=== PATIENT | female | born 1955 | race Caucasian/White ===

== ENCOUNTER 2016-12-31 11:13 | Outpatient (CLI) | payer OTHER ==
[~2016-12-31 11:13] MED LIST: ADVAIR DISKU1 INH; BACLOFEN10 MG PO; CELEBREX200 MG PO; HYDROXYZINE HCL25 MG PO; METRONIDAZOLE500 MG PO; OXAYDO5 MG PO; SIMVASTATIN10 MG; [UNRECOGNIZED DRUG - CODE]
== END 2016-12-31 23:00 | disposition home or self-care (01) ==
LOC: LAB SRH 11:13
DX: R42 Dizziness and giddiness (principal)
CPT/HCPCS: 90073; 90074; 90075; 90077; 90078; 90100; 90648; 91096; 91504; 92690; 92720; 93140; 95059; 99777

== ENCOUNTER 2017-02-04 15:08 | Emergency (ER) | payer OTHER ==
--- NOTE | 2017-02-04 16:14 | DIAGNOSTIC IMAGING REPORT ---
PROCEDURE: XR SHOULDER 2 OR MORE VW-LEFT INDICATION: PAIN TECHNIQUE: Three views. COMPARISON: None. FINDINGS: Osseous structures and joint spaces are normal. IMPRESSION: 1. Normal left shoulder.
--- NOTE | 2017-02-04 16:33 | ED NURSING NOTES ---
Clinical Report - Nurses [facility] [address] [place] [address] 02/04/2017 15:11 [id number] TRI[facility] Triage time 15:22. Acuity: LEVEL 4. Chief Complaint: LEFT UPPER EXTREMITY PAIN and REDNESS. Alert. No acute distress. MARC COMA SCORE: Marc Coma Scale: 15- eyes open spontaneously (4); best verbal response- oriented x 4 (5); best motor response- obeys commands (6). --15:39 Sierra Bettencourt R.N. 15:22 02/04/17. BP: 154/81. HR: 71. RR: 18. O2 saturation: 98%. Temp: 97.5 F (oral). Pain level now: 05/19. --15:39 Sierra Bettencourt R.N. Weight: 72.1 kg stated. Height/Length: 61 inches Per Patient. BMI: 30. --15:36 Sierra Bettencourt R.N. Medications Fiber Therapy Oral, daily. HydrOXYzine HCl Oral 25 mg, 4x a day. Lidocaine External, as directed. Metoprolol Tartrate Oral 100 mg, bid. Simvastatin Oral (Tablet 10 mg), daily. --15:25 Sierra Bettencourt R.N. Cyanocobalamin Injection 1 tab, daily. --15:27 Sierra Bettencourt R.N. Calcium Carb-Cholecalciferol Oral 1 tab, daily. --15:28 Sierra Bettencourt R.N. Nitroglycerin Translingual, as needed. --15:29 Sierra Bettencourt R.N. ProAir HFA Inhalation, 2x a day. --15:29 Sierra Bettencourt R.N. Cyclobenzaprine HCl Oral 10 mg, 2x a day. --15:30 Sierra Bettencourt R.N. TraMADol HCl Oral 50 mg, 4x a day. --15:30 Sierra Bettencourt R.N. Tylenol PM Extra Strength Oral (Tablet 500-25 mg) 2 tablets, hs. --15:31 Sierra Bettencourt R.N. Estroven, daily. --15:33 Sierra Bettencourt R.N. Probiotic Oral, daily. --15:33 Sierra Bettencourt R.N. (list). --15:39 Sierra Bettencourt R.N. Allergies IV Contrast. --15:33 Sierra Bettencourt R.N. History Arrived by private vehicle. Historian: patient. Unaccompanied. Primary physician ([facility] [place]). This occurred (6 days). ( pain woke her up from sleep and it has been painful since). SOCIAL HX: Former smoker. No alcohol use or drug use. FALL RISK ASSESSMENT: Fall risk assessment completed. No fall risk identified. FUNCTIONAL ASSESSMENT: Functional assessment: no impairments noted. LEARNING NEEDS ASSESSMENT: The learning needs assessment revealed no barriers. --15:39 Sierra Bettencourt R.N. PROBLEMS: Hepatitis. UTI - Urinary Tract Infection. Hypertension. Drug Poisoning. Constipation. Allergic Reaction. Gastroenteritis. Muscle Strain, Lower Extremity. Cervical Strain. Colitis. Dental Caries. Dental Abscess. Dental Pain. Atypical Chest Pain. Pleurisy. Bronchitis. Pyelonephritis. COPD - Chronic Obstructive Pulmonary Disease. Urinary Calculi. Nephropathy. Peptic Ulcer Disease. Heart Disease. Lung Disease. Gastroesophageal Reflux Disease. Diverticulitis. Valvular Heart Disease. Chest Wall Pain. Chest Pain. Abdominal Pain. Vomiting. Diarrhea. --15:35 Sierra Bettencourt R.N. Chest Pain of GI Origin [RuleOut]. Diverticulitis [RuleOut]. --15:35 Sierra Bettencourt R.N. ADDITIONAL SURGERIES: Ablation. Back pain stimulator implanted 07-24. Cholecystectomy. Colectomy. Hernia Repair. Valve Replacement. --15:35 Sierra Bettencourt R.N. Assessment GENERAL / NEURO / PSYCH: Alert. Oriented X 4. Appears in no acute distress. Patient appears calm and cooperative. RESPIRATORY: Respirations not labored. SKIN: Skin is warm and dry. --15:39 Sierra Bettencourt R.N. Interventions ID and allergy band on patient. To treatment room. --15:39 Sierra Bettencourt R.N. PHYSICAL ASSESSMENT 15:43 02/04/17. Ambulatory to room. Patient gowned. GENERAL / NEURO / PSYCH: Oriented X 4. Alert. Appears in no acute distress. SKIN: Skin is warm and dry. ( holding her left arm close to her body). --15:43 Sierra Bettencourt R.N. NURSING PROGRESS NOTES 15:43 02/04/17. Patient gowned. Call light placed in reach. Side rails up x 1. Bed placed in lowest position. Brakes of bed on. --15:43 Sierra Bettencourt R.N. Patient walked to [facility]. --15:43 Sierra Bettencourt R.N. 16:40. The patient is calm and resting quietly. Overall patient status is the same- she states feels the same. GENERAL / NEURO / PSYCH: Alert. Oriented X 4. RESPIRATORY: No respiratory distress. SKIN: Skin is warm and dry. --16:46 Sierra Bettencourt R.N. DISPOSITION / DISCHARGE Departure time: 1639. Condition at departure: stable. No learning barriers present. Discharge instructions provided and reviewed with the patient. Reviewed medication(s). Prescription(s) given to the patient. Patient verbalized understanding. Written instructions provided in Hungarian. The patient was discharged home and accompanied by transit manager. She left the Emergency Department ambulatory and via private vehicle. FALL RISK ASSESSMENT: Fall risk assessment completed. No fall risk identified. --16:45 Sierra Bettencourt R.N. 16:40 02/04/17. BP: 147/77. HR: 70. RR: 18. O2 saturation: 98% on room air. Temp: 97.5 F (oral). Pain level now: 02/16. --16:45 Sierra Bettencourt R.N. Locked/Released at 02/04/2017 16:46 by Sierra Bettencourt R.N.
--- NOTE | 2017-02-04 16:33 | ED CLINICAL REPORT ---
Clinical Report - Physicians/Mid Levels [facility] [address] [place] [address] 02/04/2017 15:11 Patient: VESNA KRUSE Time Seen: 15:30; upon arrival, initial patient contact, initial documentation, patient care assumed. Arrived- By private vehicle. Historian- patient. HISTORY OF PRESENT ILLNESS Chief Complaint: UPPER EXTREMITY PAIN. Modifying factors- worsened by movement of arm. Not made better by anything. Severity is described as being severe. The quality is noted to be "pain". No radiation. This started about 1 weeks ago and is still present. Symptoms located in the area of the left shoulder. No chest pain, difficulty breathing, swelling, sensory loss or motor loss. No repetitive hand use at work. She has not had redness. Patient denies an injury. Similar symptoms previously: None. Recent medical care: The patient was seen recently in the office. ( went to pcp x2 days ago, given muscle relaxer and tramadol, no better, asked her dr to give her stronger pain pills but pcp wouldn't do it, went to heart dr yesterday, nothing said about shoulder pain, says dr was concerned about her hepatitis and her liver). REVIEW OF SYSTEMS No fever. All systems otherwise negative, except as recorded above. PAST HISTORY See nurses notes. PROBLEMS: Hepatitis. UTI - Urinary Tract Infection. Hypertension. Drug Poisoning. Constipation. Allergic Reaction. Gastroenteritis. Muscle Strain, Lower Extremity. Cervical Strain. Colitis. Dental Caries. Dental Abscess. Dental Pain. Atypical Chest Pain. Pleurisy. Bronchitis. Pyelonephritis. COPD - Chronic Obstructive Pulmonary Disease. Urinary Calculi. Nephropathy. Peptic Ulcer Disease. Heart Disease. Lung Disease. Gastroesophageal Reflux Disease. Diverticulitis. Valvular Heart Disease. Chest Wall Pain. Chest Pain. Abdominal Pain. Vomiting. Diarrhea. --15:35 Sierra Bettencourt R.N. Chest Pain of GI Origin [RuleOut]. Diverticulitis [RuleOut]. --15:35 Sierra Bettencourt R.N. ADDITIONAL SURGERIES: Ablation. Back pain stimulator implanted 07-24. Cholecystectomy. Colectomy. Hernia Repair. Valve Replacement. --15:35 Sierra Bettencourt R.N. SOCIAL HISTORY Former smoker. No alcohol use or drug use. No recent travel. Is a local resident. FAMILY HISTORY Negative. ADDITIONAL NOTES The nursing notes have been reviewed with agreement regarding the chief complaint, HPI, ROS, PMH and patient medications and allergies. PHYSICAL EXAM Appearance: Alert. Oriented X3. No acute distress. Eyes: Pupils equal, round and reactive to light. Eyes normal inspection. Neck: Normal inspection. Neck supple. Respiratory: No respiratory distress. Skin: Skin intact. Skin warm and dry. Normal skin color. Normal skin turgor. Extremities: Upper extremities abnormal to inspection. Upper extremities exhibit normal ROM. Upper extremity tenderness. Upper extremities exhibit edema. Left shoulder: mild tenderness located in the AC joint. Neurovascular intact distally. No erythema, swelling, laceration, abrasion or ecchymosis. No puncture wound, foreign body or deformity. No joint effusion or limitation in ROM. Extremities otherwise negative. Neuro: Oriented X 3. No motor deficit. No sensory deficit. LABS, X-RAYS, AND EKG X-Rays: Left shoulder negative. Lt Shoulder X-ray: (IMPRESSION: 1. Normal left shoulder. Electronically Final signed by:Jake Frost MD 02/04/2017 4:14:22 PM). The X-rays were interpreted by the radiologist and contemporaneously by me. Interpretation time: 16:23. PROGRESS AND PROCEDURES Course of Care: pt upset her dr didn't do any xrays, and already asking for more pain pills, and would like her hepatitis checked and her liver 15:44 02/04/17. nurse informing she knows pt from previous er visits pt has [facility] for frequent large quantity meds, last rx 01/14 #120 tramadol and #9 er visits, see report for full details [id number]. when discussing xray results pt asked for cortisone injection into shoulder, explained ortho or specialist would have to do this, pt stated she had appt with ortho but it was in a month,one for her R hip and one for her L shoulder, because both have been bothering her for some time now, discussed changing pain rx, and switching back to percocet and pt stated she didn't want any percocet, she was happy with ultram, pt also now telling me was at [facility] and they wouldn't do anything so she came here. Patient counseled in person regarding the patient's stable condition, test results and diagnosis. 16:24. Differential Diagnosis: I considered stress fracture, aseptic necrosis, primary tumor, metastatic cancer, degenerative joint disease, arthritis, rheumatoid arthritis, gout, sprain, hyperextension, rotator cuff tear, acromioclavicular separation, soft tissue injury, soft tissue hematoma, tendonitis, myositis, fasciitis, bursitis, sarcoma and tendon injury as a possible cause of upper extremity pain in this patient. This is a partial list of diagnoses considered. Above considerations are based on history, physical exam and X-Ray data. Differential diagnosis was discussed with patient. Disposition: Discharged home in good and unchanged condition (16:33). Condition: good and stable. CLINICAL IMPRESSION Chronic upper extremity pain involving the left shoulder. INSTRUCTIONS Warnings: GENERAL WARNINGS: Return or contact your physician immediately if your condition worsens or changes unexpectedly, if not improving as expected, or if other problems arise. Specifically return if problem worsens. Prescription Medications: Medrol Dosepak: take according to package directions. Dispense one (1) dosepak. No refills. Substitution is permissible. Follow-up: Follow up with an orthopedic surgeon in about one week even if well. Call for an appointment. Summary of care provided to patient. Understanding of the discharge instructions verbalized by patient. (Electronically signed by Loree Álvarez A.R.N.P. 02/04/2017 17:04)
--- NOTE | 2017-02-04 16:33 | ED NURSING NOTES ---
Clinical Report - Nurses [facility] [address] [place] [address] 02/04/2017 15:11 [id number] Triage time 15:22. Acuity: LEVEL 4. Chief Complaint: LEFT UPPER EXTREMITY PAIN and REDNESS. Alert. No acute distress. MARC COMA SCORE: Marc Coma Scale: 15- eyes open spontaneously (4); best verbal response- oriented x 4 (5); best motor response- obeys commands (6). --15:39 Sierra Bettencourt R.N. 15:22 02/04/17. BP: 154/81. HR: 71. RR: 18. O2 saturation: 98%. Temp: 97.5 F (oral). Pain level now: 05/19. --15:39 Sierra Bettencourt R.N. Weight: 72.1 kg stated. Height/Length: 61 inches Per Patient. BMI: 30. --15:36 Sierra Bettencourt R.N. Medications Fiber Therapy Oral, daily. HydrOXYzine HCl Oral 25 mg, 4x a day. Lidocaine External, as directed. Metoprolol Tartrate Oral 100 mg, bid. Simvastatin Oral (Tablet 10 mg), daily. --15:25 Sierra Bettencourt R.N. Cyanocobalamin Injection 1 tab, daily. --15:27 Sierra Bettencourt R.N. Calcium Carb-Cholecalciferol Oral 1 tab, daily. --15:28 Sierra Bettencourt R.N. Nitroglycerin Translingual, as needed. --15:29 Sierra Bettencourt R.N. ProAir HFA Inhalation, 2x a day. --15:29 Sierra Bettencourt R.N. Cyclobenzaprine HCl Oral 10 mg, 2x a day. --15:30 Sierra Bettencourt R.N. TraMADol HCl Oral 50 mg, 4x a day. --15:30 Sierra Bettencourt R.N. Tylenol PM Extra Strength Oral (Tablet 500-25 mg) 2 tablets, hs. --15:31 Sierra Bettencourt R.N. Estroven, daily. --15:33 Sierra Bettencourt R.N. Probiotic Oral, daily. --15:33 Sierra Bettencourt R.N. (list). --15:39 Sierra Bettencourt R.N. Allergies IV Contrast. --15:33 Sierra Bettencourt R.N. History Arrived by private vehicle. Historian: patient. Unaccompanied. Primary physician ([facility]). This occurred (6 days). ( pain woke her up from sleep and it has been painful since). SOCIAL HX: Former smoker. No alcohol use or drug use. FALL RISK ASSESSMENT: Fall risk assessment completed. No fall risk identified. FUNCTIONAL ASSESSMENT: Functional assessment: no impairments noted. LEARNING NEEDS ASSESSMENT: The learning needs assessment revealed no barriers. --15:39 Sierra Bettencourt R.N. PROBLEMS: Hepatitis. UTI - Urinary Tract Infection. Hypertension. Drug Poisoning. Constipation. Allergic Reaction. Gastroenteritis. Muscle Strain, Lower Extremity. Cervical Strain. Colitis. Dental Caries. Dental Abscess. Dental Pain. Atypical Chest Pain. Pleurisy. Bronchitis. Pyelonephritis. COPD - Chronic Obstructive Pulmonary Disease. Urinary Calculi. Nephropathy. Peptic Ulcer Disease. Heart Disease. Lung Disease. Gastroesophageal Reflux Disease. Diverticulitis. Valvular Heart Disease. Chest Wall Pain. Chest Pain. Abdominal Pain. Vomiting. Diarrhea. --15:35 Sierra Bettencourt R.N. Chest Pain of GI Origin [RuleOut]. Diverticulitis [RuleOut]. --15:35 Sierra Bettencourt R.N. ADDITIONAL SURGERIES: Ablation. Back pain stimulator implanted 07-24. Cholecystectomy. Colectomy. Hernia Repair. Valve Replacement. --15:35 Sierra Bettencourt R.N. Assessment GENERAL / NEURO / PSYCH: Alert. Oriented X 4. Appears in no acute distress. Patient appears calm and cooperative. RESPIRATORY: Respirations not labored. SKIN: Skin is warm and dry. --15:39 Sierra Bettencourt R.N. Interventions ID and allergy band on patient. To treatment room. --15:39 Sierra Bettencourt R.N. PHYSICAL ASSESSMENT 15:43 02/04/17. Ambulatory to room. Patient gowned. GENERAL / NEURO / PSYCH: Oriented X 4. Alert. Appears in no acute distress. SKIN: Skin is warm and dry. ( holding her left arm close to her body). --15:43 Sierra Bettencourt R.N. NURSING PROGRESS NOTES 15:43 02/04/17. Patient gowned. Call light placed in reach. Side rails up x 1. Bed placed in lowest position. Brakes of bed on. --15:43 Sierra Bettencourt R.N. Patient walked to [facility] with [employer]. --15:43 Sierra Bettencourt R.N. 16:40. The patient is calm and resting quietly. Overall patient status is the same- she states feels the same. GENERAL / NEURO / PSYCH: Alert. Oriented X 4. RESPIRATORY: No respiratory distress. SKIN: Skin is warm and dry. --16:46 Sierra Bettencourt R.N. DISPOSITION / DISCHARGE Departure time: 1639. Condition at departure: stable. No learning barriers present. Discharge instructions provided and reviewed with the patient. Reviewed medication(s). Prescription(s) given to the patient. Patient verbalized understanding. Written instructions provided in Estonian. The patient was discharged home and accompanied by human resources benefits assistant. She left the Emergency Department ambulatory and via private vehicle. FALL RISK ASSESSMENT: Fall risk assessment completed. No fall risk identified. --16:45 Sierra Bettencourt R.N. 16:40 02/04/17. BP: 147/77. HR: 70. RR: 18. O2 saturation: 98% on room air. Temp: 97.5 F (oral). Pain level now: 02/16. --16:45 Sierra Bettencourt R.N. Locked/Released at 02/04/2017 16:46 by Sierra Bettencourt R.N.
--- NOTE | 2017-02-04 16:33 | ED ORDER SUMMARY ---
..... Patient: VESNA KRUSE OrderSheet [facility] VisitID: [id number] [address] [place] [address] 61y, F Registration Date/Time: 02/04/2017 ORDER SHEET Weight: 72.1 kg (stated) Allergies: IV Contrast GENERAL ORDERS: Shoulder 2V or more Left Urgent (15:34 02/04/2017 Lissette A.R.N.P.) ([facility] 15:36 [facility] (16:07 [facility]) MEDICATION ORDERS: IV FLUIDS: ORDER SHEET NOTES: [Electronically signed by Sierra Bettencourt R.N. (16:46 02/04/2017)] [Electronically signed by Loree ÁlvarezR.N.PRoldan (17:04 02/04/2017)] [Electronically locked/signed by Sierra Bettencourt R.N. (16:46 02/04/2017)]
--- NOTE | 2017-02-04 16:33 | ED ORDER SUMMARY ---
..... Patient: VESNA KRUSE OrderSheet [facility] VisitID: [id number] [address] [place] [address] 61y, F Registration Date/Time: 02/04/2017 ORDER SHEET Weight: 72.1 kg (stated) Allergies: IV Contrast GENERAL ORDERS: Shoulder 2V or more Left Urgent (15:34 02/04/2017 Lissette A.R.N.P.) ([facility] 15:36 [facility] (16:07 [facility]) MEDICATION ORDERS: IV FLUIDS: ORDER SHEET NOTES: [Electronically signed by Sierra Bettencourt R.N. (16:46 02/04/2017)] [Electronically signed by Loree ÁlvarezR.N.PRoldan (17:04 02/04/2017)] [Electronically locked/signed by Sierra Bettencourt R.N. (16:46 02/04/2017)]
--- NOTE | 2017-02-04 17:05 | ED MED RECONCILIATION SUMMARY ---
Patient: VESNA KRUSE Medication Reconciliation Report [facility] VisitID: [id number] [address] [place] [address] 61y, F Registration Date/Time: 02/04/2017 Weight: 72.1 kg Height/Length: 61 in. BMI: 30.0 ALLERGIES: IV Contrast The patient's Home Medications are listed below: THE FOLLOWING MEDICATIONS NEED TO BE RECONCILED: Calcium Carb-Cholecalciferol Oral 1 tab, daily Cyanocobalamin Injection 1 tab, daily Cyclobenzaprine HCl Oral 10 mg, 2x a day Estroven, daily Fiber Therapy Oral, daily HydrOXYzine HCl Oral 25 mg, 4x a day Lidocaine External, as directed Metoprolol Tartrate Oral 100 mg, bid Nitroglycerin Translingual ProAir HFA Inhalation, 2x a day Probiotic Oral, daily Simvastatin Oral (10 mg), daily TraMADol HCl Oral 50 mg, 4x a day Tylenol PM Extra Strength Oral (500-25 mg) 2 tablets, hs The source(s) of the original Home Medication information: list The following Medications were given to the patient in the Emergency Department: None. The following Medications were prescribed to the patient: Medrol Dosepak: take according to package directions. Dispense one (1) dosepak. No refills. Substitution is permissible. -- Loree Álvarez A.R.N.P.
--- NOTE | 2017-02-04 17:05 | ED MED RECONCILIATION SUMMARY ---
Patient: VESNA KRUSE Medication Reconciliation Report [facility] VisitID: [id number] [address] [place] [address] 61y, F Registration Date/Time: 02/04/2017 Weight: 72.1 kg Height/Length: 61 in. BMI: 30.0 ALLERGIES: IV Contrast The patient's Home Medications are listed below: THE FOLLOWING MEDICATIONS NEED TO BE RECONCILED: Calcium Carb-Cholecalciferol Oral 1 tab, daily Cyanocobalamin Injection 1 tab, daily Cyclobenzaprine HCl Oral 10 mg, 2x a day Estroven, daily Fiber Therapy Oral, daily HydrOXYzine HCl Oral 25 mg, 4x a day Lidocaine External, as directed Metoprolol Tartrate Oral 100 mg, bid Nitroglycerin Translingual ProAir HFA Inhalation, 2x a day Probiotic Oral, daily Simvastatin Oral (10 mg), daily TraMADol HCl Oral 50 mg, 4x a day Tylenol PM Extra Strength Oral (500-25 mg) 2 tablets, hs The source(s) of the original Home Medication information: list The following Medications were given to the patient in the Emergency Department: None. The following Medications were prescribed to the patient: Medrol Dosepak: take according to package directions. Dispense one (1) dosepak. No refills. Substitution is permissible. -- Loree Álvarez A.R.N.P.
--- NOTE | 2017-02-04 17:05 | ED MAR SUMMARY ---
..... Medication Administration Record [facility] [address], [place] [id number] Patient: VESNA KRUSE Visit ID: [id number] 61y, F Weight: 72.1 kg Height/Length: 61 in BMI: 30 ALLERGIES: IV Contrast
--- NOTE | 2017-02-04 17:05 | ED DISCHARGE INSTRUCTIONS ---
Patient: VESNA KRUSE General Instructions [facility] VisitID: [id number] [place] [address] 61y, F Registration Date/Time: 02/04/2017 Chronic upper extremity pain involving the left shoulder. INSTRUCTIONS Warnings: GENERAL WARNINGS: Return or contact your physician immediately if your condition worsens or changes unexpectedly, if not improving as expected, or if other problems arise. Specifically return if problem worsens. Prescription Medications: Medrol Dosepak: take according to package directions. Dispense one (1) dosepak. No refills. Substitution is permissible. Follow-up: Follow up with an orthopedic surgeon in about one week even if well. Call for an appointment. Summary of care provided to patient. Understanding of the discharge instructions verbalized by patient. ADDITIONAL INFORMATION Shoulder Pain (Uncertain Cause) Shoulder pain often arises from the structures that surround the shoulder joint (the joint capsule, ligaments, tendons, muscles, and bursa). The joint itself contains cartilage that can become worn out or injured and can also be a source of pain. The correct treatment requires knowing the cause of the pain. Sometimes it is difficult to diagnose the exact cause of shoulder pain and referral to a specialist may be required. You may eventually need special tests such as CT scan, MRI, or arthroscopy (a procedure that uses special instruments to look inside the joint through a small incision). Shoulder pain can be treated initially with a sling or shoulder immobilizer and anti-inflammatory medicines such as ibuprofen. Special shoulder exercises may be needed. Follow-up with a specialist is important when pain is severe or does not go away after a few weeks. Home Care: If a sling was provided, leave it in place for the time advised by your doctor. If you are unsure how long to wear it, ask for advice. If the sling becomes loose, adjust it so that your forearm is level with the ground and the shoulder feels well supported. Apply an ice pack (ice cubes in a plastic bag, wrapped in a towel) over the injured area for 20 minutes every 1 to 2 hours the first day for pain relief. Continue this 3 to 4 times a day until the pain and swelling go away. You may use acetaminophen (Tylenol) or ibuprofen (Motrin, Advil) to control pain, unless another pain medicine was prescribed. (NOTE: If you have chronic liver or kidney disease or ever had a stomach ulcer or GI bleeding, talk with your doctor before using these medicines.) Shoulder pain may seem worse at night, when there is less to distract you from the pain. If you sleep on your side, try to keep your weight off your painful shoulder. Propping pillows behind you may prevent you from rolling over onto that shoulder during sleep. Shoulder joints become stiff if left in a sling for too long. Pxrox-kz-zcnlyb exercises should usually be started within the first 10 days after injury. Consult your doctor on what type of exercises to do and how soon to start. You may remove the sling to shower or bathe. Follow Up with your doctor, or as advised by our staff, if you are not starting to improve within the next 5 days. Get Prompt Medical Attention if any of the following occur: Pain or swelling increases Hand or fingers becomes cold, blue, numb, or tingly Large amount of bruising of the shoulder or upper arm Methylprednisolone Oral tablet What is this medicine? METHYLPREDNISOLONE (meth ill pred NISS oh lone) is a corticosteroid. It is commonly used to treat inflammation of the skin, joints, lungs, and other organs. Common conditions treated include asthma, allergies, and arthritis. It is also used for other conditions, such as blood disorders and diseases of the adrenal glands. How should I use this medicine? Take this medicine by mouth with a drink of water. Follow the directions on the prescription label. Take it with food or milk to avoid stomach upset. If you are taking this medicine once a day, take it in the morning. Do not take more medicine than you are told to take. Do not suddenly stop taking your medicine because you may develop a severe reaction. Your doctor will tell you how much medicine to take. If your doctor wants you to stop the medicine, the dose may be slowly lowered over time to avoid any side effects. Talk to your air traffic controller regarding the use of this medicine in children. Special care may be needed. What side effects may I notice from receiving this medicine? Side effects that you should report to your doctor or health neurocritical care physician as soon as possible: allergic reactions like skin rash, itching or hives, swelling of the face, lips, or tongue eye pain, decreased or blurred vision, or bulging eyes fever, sore throat, sneezing, cough, or other signs of infection, wounds that will not heal increased thirst mental depression, mood swings, mistaken feelings of self importance or of being mistreated pain in hips, back, ribs, arms, shoulders, or legs swelling of the ankles, feet, hands trouble passing urine or change in the amount of urine Side effects that usually do not require medical attention (report to your doctor or health neurocritical care physician if they continue or are bothersome): confusion, excitement, restlessness headache nausea, vomiting skin problems, acne, thin and shiny skin weight gain What may interact with this medicine? Do not take this medicine with any of the following medications: mifepristone This medicine may also interact with the following medications: tacrolimus vaccines warfarin What if I miss a dose? If you miss a dose, take it as soon as you can. If it is almost time for your next dose, talk to your doctor or health neurocritical care physician. You may need to miss a dose or take an extra dose. Do not take double or extra doses without advice. Where should I keep my medicine? Keep out of the reach of children. Store at room temperature between 20 and 25 degrees C (68 and 77 degrees F). Throw away any unused medicine after the expiration date. What should I tell my health care provider before I take this medicine? They need to know if you have any of these conditions: Singer's syndrome diabetes glaucoma heart problems or disease high blood pressure infection such as herpes, measles, tuberculosis, or chickenpox kidney disease liver disease mental problems myasthenia gravis osteoporosis seizures stomach ulcer or intestine disease including colitis and diverticulitis thyroid problem an unusual or allergic reaction to lactose, methylprednisolone, other medicines, foods, dyes, or preservatives or trying to get breast-feeding What should I watch for while using this medicine? Visit your doctor or health neurocritical care physician for regular checks on your progress. If you are taking this medicine for a long time, carry an identification card with your name and address, the type and dose of your medicine, and your doctor's name and address. The medicine may increase your risk of getting an infection. Stay away from people who are sick. Tell your doctor or health neurocritical care physician if you are around anyone with measles or chickenpox. If you are going to have surgery, tell your doctor or health neurocritical care physician that you have taken this medicine within the last twelve months. Ask your doctor or health neurocritical care physician about your diet. You may need to lower the amount of salt you eat. The medicine can increase your blood sugar. If you are a diabetic check with your doctor if you need help adjusting the dose of your diabetic medicine. You have been given the following additional information: Shoulder Pain (Uncertain Cause) Methylprednisolone Oral tablet (Electronically signed by Loree Álvarez A.R.N.P. 02/04/2017 17:04)
--- NOTE | 2017-02-04 17:05 | ED DISCHARGE INSTRUCTIONS ---
Patient: VESNA KRUSE General Instructions [facility] VisitID: [id number] [place] [address] 61y, F Registration Date/Time: 02/04/2017 Chronic upper extremity pain involving the left shoulder. INSTRUCTIONS Warnings: GENERAL WARNINGS: Return or contact your physician immediately if your condition worsens or changes unexpectedly, if not improving as expected, or if other problems arise. Specifically return if problem worsens. Prescription Medications: Medrol Dosepak: take according to package directions. Dispense one (1) dosepak. No refills. Substitution is permissible. Follow-up: Follow up with an orthopedic surgeon in about one week even if well. Call for an appointment. Summary of care provided to patient. Understanding of the discharge instructions verbalized by patient. ADDITIONAL INFORMATION Shoulder Pain (Uncertain Cause) Shoulder pain often arises from the structures that surround the shoulder joint (the joint capsule, ligaments, tendons, muscles, and bursa). The joint itself contains cartilage that can become worn out or injured and can also be a source of pain. The correct treatment requires knowing the cause of the pain. Sometimes it is difficult to diagnose the exact cause of shoulder pain and referral to a specialist may be required. You may eventually need special tests such as CT scan, MRI, or arthroscopy (a procedure that uses special instruments to look inside the joint through a small incision). Shoulder pain can be treated initially with a sling or shoulder immobilizer and anti-inflammatory medicines such as ibuprofen. Special shoulder exercises may be needed. Follow-up with a specialist is important when pain is severe or does not go away after a few weeks. Home Care: If a sling was provided, leave it in place for the time advised by your doctor. If you are unsure how long to wear it, ask for advice. If the sling becomes loose, adjust it so that your forearm is level with the ground and the shoulder feels well supported. Apply an ice pack (ice cubes in a plastic bag, wrapped in a towel) over the injured area for 20 minutes every 1 to 2 hours the first day for pain relief. Continue this 3 to 4 times a day until the pain and swelling go away. You may use acetaminophen (Tylenol) or ibuprofen (Motrin, Advil) to control pain, unless another pain medicine was prescribed. (NOTE: If you have chronic liver or kidney disease or ever had a stomach ulcer or GI bleeding, talk with your doctor before using these medicines.) Shoulder pain may seem worse at night, when there is less to distract you from the pain. If you sleep on your side, try to keep your weight off your painful shoulder. Propping pillows behind you may prevent you from rolling over onto that shoulder during sleep. Shoulder joints become stiff if left in a sling for too long. Tmjhm-pe-kjowjz exercises should usually be started within the first 10 days after injury. Consult your doctor on what type of exercises to do and how soon to start. You may remove the sling to shower or bathe. Follow Up with your doctor, or as advised by our staff, if you are not starting to improve within the next 5 days. Get Prompt Medical Attention if any of the following occur: Pain or swelling increases Hand or fingers becomes cold, blue, numb, or tingly Large amount of bruising of the shoulder or upper arm Methylprednisolone Oral tablet What is this medicine? METHYLPREDNISOLONE (meth ill pred NISS oh lone) is a corticosteroid. It is commonly used to treat inflammation of the skin, joints, lungs, and other organs. Common conditions treated include asthma, allergies, and arthritis. It is also used for other conditions, such as blood disorders and diseases of the adrenal glands. How should I use this medicine? Take this medicine by mouth with a drink of water. Follow the directions on the prescription label. Take it with food or milk to avoid stomach upset. If you are taking this medicine once a day, take it in the morning. Do not take more medicine than you are told to take. Do not suddenly stop taking your medicine because you may develop a severe reaction. Your doctor will tell you how much medicine to take. If your doctor wants you to stop the medicine, the dose may be slowly lowered over time to avoid any side effects. Talk to your piece worker regarding the use of this medicine in children. Special care may be needed. What side effects may I notice from receiving this medicine? Side effects that you should report to your doctor or health care team coordinator scheduler as soon as possible: allergic reactions like skin rash, itching or hives, swelling of the face, lips, or tongue eye pain, decreased or blurred vision, or bulging eyes fever, sore throat, sneezing, cough, or other signs of infection, wounds that will not heal increased thirst mental depression, mood swings, mistaken feelings of self importance or of being mistreated pain in hips, back, ribs, arms, shoulders, or legs swelling of the ankles, feet, hands trouble passing urine or change in the amount of urine Side effects that usually do not require medical attention (report to your doctor or health care team coordinator scheduler if they continue or are bothersome): confusion, excitement, restlessness headache nausea, vomiting skin problems, acne, thin and shiny skin weight gain What may interact with this medicine? Do not take this medicine with any of the following medications: mifepristone This medicine may also interact with the following medications: tacrolimus vaccines warfarin What if I miss a dose? If you miss a dose, take it as soon as you can. If it is almost time for your next dose, talk to your doctor or health care team coordinator scheduler. You may need to miss a dose or take an extra dose. Do not take double or extra doses without advice. Where should I keep my medicine? Keep out of the reach of children. Store at room temperature between 20 and 25 degrees C (68 and 77 degrees F). Throw away any unused medicine after the expiration date. What should I tell my health care provider before I take this medicine? They need to know if you have any of these conditions: [place]'s syndrome diabetes glaucoma heart problems or disease high blood pressure infection such as herpes, measles, tuberculosis, or chickenpox kidney disease liver disease mental problems myasthenia gravis osteoporosis seizures stomach ulcer or intestine disease including colitis and diverticulitis thyroid problem an unusual or allergic reaction to lactose, methylprednisolone, other medicines, foods, dyes, or preservatives or trying to get breast-feeding What should I watch for while using this medicine? Visit your doctor or health care team coordinator scheduler for regular checks on your progress. If you are taking this medicine for a long time, carry an identification card with your name and address, the type and dose of your medicine, and your doctor's name and address. The medicine may increase your risk of getting an infection. Stay away from people who are sick. Tell your doctor or health care team coordinator scheduler if you are around anyone with measles or chickenpox. If you are going to have surgery, tell your doctor or health care team coordinator scheduler that you have taken this medicine within the last twelve months. Ask your doctor or health care team coordinator scheduler about your diet. You may need to lower the amount of salt you eat. The medicine can increase your blood sugar. If you are a diabetic check with your doctor if you need help adjusting the dose of your diabetic medicine. You have been given the following additional information: Shoulder Pain (Uncertain Cause) Methylprednisolone Oral tablet (Electronically signed by Loree Álvarez A.R.N.P. 02/04/2017 17:04)
--- NOTE | 2017-02-04 17:05 | ED MAR SUMMARY ---
..... Medication Administration Record [facility] [address] [place], [place] [id number] Patient: VESNA KRUSE Visit ID: [id number] 61y, F Weight: 72.1 kg Height/Length: 61 in BMI: 30 ALLERGIES: IV Contrast
== END 2017-02-04 16:40 | disposition home or self-care (01) ==
LOC: ED SRH 15:08
DX: G89.29 Other chronic pain (principal); M25.512 Pain in left shoulder; I10 Essential (primary) hypertension; Z79.899 Other long term (current) drug therapy; Z87.891 Personal history of nicotine dependence; Z91.041 Radiographic dye allergy status

== ENCOUNTER 2017-02-13 07:26 | Emergency (ER) | payer OTHER ==
--- NOTE | 2017-02-13 09:40 | ED ORDER SUMMARY ---
..... Patient: VESNA KRUSE OrderSheet [facility] VisitID: [id number] [address] [place] [address] 61y, F Registration Date/Time: 02/13/2017 ORDER SHEET Weight: 73.0 kg (stated) Allergies: IV Contrast GENERAL ORDERS: Old Records ([facility]) (07:38 02/13/2017 PHutchinson DO) (Ack 7:41 TBergley) (7:59 MWinterer R.N.) Abd Series 2V Abd/1V Chest Urgent (07:53 02/13/2017 PHutchinson DO) (Ack 7:54 TBergley) (7:55 PHutchinson DO) (Cancelled: Other7:55 PHutchinson DO) UA-Culture if indicated Urgent (07:53 02/13/2017 PHutchinson DO) (Ack 7:54 TBergley) (9:22 MWinterer R.N.) Amylase Urgent (07:53 02/13/2017 PHutchinson DO) (Ack 7:54 TBergley) (8:27 MWinterer R.N.) Lipase Urgent (07:53 02/13/2017 PHutchinson DO) (Ack 7:54 TBergley) (8:27 MWinterer R.N.) Cardiac Panel Stat (07:53 02/13/2017 PHutchinson DO) (Ack 7:54 TBergley) (8:27 MWinterer R.N.) PT with INR Urgent (07:53 02/13/2017 PHutchinson DO) (Ack 7:54 TBergley) (8:27 MWinterer R.N.) Lactate, Serum Urgent (07:53 02/13/2017 PHutchinson DO) (Ack 7:54 TBergley) (8:27 MWinterer R.N.) BNP Urgent (07:53 02/13/2017 PHutchinson DO) (Ack 7:54 TBergley) (8:27 MWinterer R.N.) NPO (07:53 02/13/2017 PHutchinson DO) (Ack 7:54 TBergley) (7:59 MWinterer R.N.) CT Abd/Pel wo Cont (LLQ; contrast allergy) Urgent (07:55 02/13/2017 [facility]) (Ack 7:59 TBergley) (8:27 TBergley) MEDICATION ORDERS: - (Fleets enema x 2 (oil then water based)) (07:53 02/13/2017 [facility]) (Cancelled: Patient Refusal8:00 [facility]) Levofloxacin PO 750 mg (NOW) (09:34 02/13/2017 [facility]) (Ack 9:52 MWinterer R.N.) (9:58 MWinterer R.N.) Flagyl PO 1000 mg (NOW) (09:34 02/13/2017 [facility]) (Ack 9:52 MWinterer R.N.) (9:58 MWinterer R.N.) IV FLUIDS: IV NS : initial bolus 500 mL (1000 mL/hr), then 500 mL/hr for X1 (NOW) (07:52 02/13/2017 [facility]) (8:28 MWinterer R.N.) Zofran IV 4 mg (NOW) (07:52 02/13/2017 [facility]) (8:28 MWinterer R.N.) Dilaudid IV 1 mg (HIGH ALERT MEDICATION, NOW) (08:02 02/13/2017 [facility]) (Ack 8:28 MWinterer R.N.) (8:46 MWinterer R.N.) ORDER SHEET NOTES: [Electronically signed by Shalonda Nunez R.N. (10:15 02/13/2017)] [Electronically signed by Deepak Gates DO (11:19 02/13/2017)] [Electronically locked/signed by Shalonda Nunez R.N. (10:15 02/13/2017)]
--- NOTE | 2017-02-13 09:40 | ED NURSING NOTES ---
Clinical Report - Nurses [facility] [address] [place] [address] 02/13/2017 7:27 Patient: VESNA KRUSE TRIAGE Acuity: LEVEL 3. Chief Complaint: ABDOMINAL PAIN. Alert. No acute distress. --07:32 Shalonda Nunez R.N. 07:28 02/13/17. BP: 140/46. HR: 66. RR: 20. O2 saturation: 94% on room air. Temp: 97.9 F (oral). Pain level now: 9/10. --:32 Shalonda Nunez R.N. Weight: 73 kg stated. Height/Length: 62 inches Per Patient. BMI: 29.5. --07:32 Shalonda Nunez R.N. Medications Calcium Carb-Cholecalciferol Oral 1 tab, daily. Cyanocobalamin Injection 1 tab, daily. Cyclobenzaprine HCl Oral 10 mg, 2x a day. Estroven, daily. Fiber Therapy Oral, daily. HydrOXYzine HCl Oral 25 mg, 4x a day. Lidocaine External, as directed. Metoprolol Tartrate Oral 100 mg, bid. Nitroglycerin Translingual, as needed. ProAir HFA Inhalation, 2x a day. Probiotic Oral, daily. Simvastatin Oral (Tablet 10 mg), daily. TraMADol HCl Oral 50 mg, 4x a day. Tylenol PM Extra Strength Oral (Tablet 500-25 mg) 2 tablets, hs. --07: Shalonda Nunez R.N. Medication/allergy information source: the patient. --07:32 Shalonda Nunez R.N. Allergies IV Contrast. --: Shalonda Nunez R.N. History Arrived by EMS. Historian: patient. Unaccompanied. Primary physician ([facility]). This started last night. Describes the quality as "pain" and sharp. Relates location as in the periumbilical area. Notes pain level as 9/10 on arrival. She has had constipation. Reports last BM was 3 days ago. Treatment MANAGER OF CARE: None. PAST MEDICAL HX: The patient is post-menopausal. SOCIAL HX: Never smoker. No alcohol use or drug use. FALL RISK ASSESSMENT: Fall risk assessment completed. No fall risk identified. NUTRITIONAL RISK ASSESSMENT: The nutritional risk assessment revealed no deficiencies. FUNCTIONAL ASSESSMENT: Functional assessment: no impairments noted. LEARNING NEEDS ASSESSMENT: The learning needs assessment revealed no barriers. SKIN INTEGRITY ASSESSMENT: Skin integrity risk assessment completed. No skin integrity risk identified. --07:32 Shalonda Nunez R.N. Treatment MANAGER OF CARE: Medications given- Fentanyl IVP, morphine IVP and ondanestron. --07:33 Shalonda Nunez R.N. PROBLEMS: Upper Extremity Pain. Hepatitis. UTI - Urinary Tract Infection. Hypertension. Drug Poisoning. Constipation. Allergic Reaction. Gastroenteritis. Muscle Strain, Lower Extremity. Cervical Strain. Colitis. Dental Caries. Dental Abscess. Dental Pain. Atypical Chest Pain. Pleurisy. Bronchitis. Pyelonephritis. COPD - Chronic Obstructive Pulmonary Disease. Urinary Calculi. Nephropathy. Peptic Ulcer Disease. Heart Disease. Lung Disease. LNMP - Last Normal Menstrual Period. Gastroesophageal Reflux Disease. Diverticulitis. Valvular Heart Disease. Chest Wall Pain. Chest Pain. Abdominal Pain. Vomiting. Diarrhea. Immunizations. --07:30 Shalonda Nunez R.N. ADDITIONAL SURGERIES: Ablation. Back pain stimulator implanted 07-24. Cholecystectomy. Colectomy. Hernia Repair. Valve Replacement. --07:30 Shalonda Nunez R.N. Assessment GENERAL / NEURO / PSYCH: Alert. Oriented X 4. Appears in no acute distress. [place] Coma Scale: 15- eyes open spontaneously (4); best verbal response- oriented x 4 (5); best motor response- obeys commands (6). Patient appears calm and cooperative. RESPIRATORY: Respirations not labored. CVS: Capillary refill less than 2 seconds. GI / : Abdomen soft. Abdominal tenderness. SKIN: Mucous membranes are pink. Skin is warm and dry. --07:32 Shalonda Nunez R.N. Interventions ID band on patient. To treatment room. --07:32 Shalonda Nunez R.N. 07:33 02/13/2017 Site #1 started prior to arrival by EMS via IV in the left hand with an 20g angiocath. --07:33 Shalonda Nunez R.N. NURSING PROGRESS NOTES 07:32 02/13/17. Patient gowned. Two patient identifiers checked. Call light placed in reach. Side rails up x 2. Bed placed in lowest position. Brakes of bed on. Patient ready for evaluation- chart flagged and ED physician notified. --07:33 Shalonda Nunez R.N. 08:28 02/13/2017 Started bag #1 1000 mL IV Fluids IV NS (Saline); at 999 mL/hr over 30 minute(s) via site #1 via IV pump. Allergies verified and confirmed 5 rights. IV patency established. IV site checked: no pain, redness, or swelling. IV flushed thoroughly pre- and post-medication administration. --08:28 Shalonda Nunez R.N. 08:28 02/13/2017 Zofran (Ondansetron HCl) IVP 4 mg given over 1 minute(s) via site #1. Allergies verified and confirmed 5 rights. IV patency established. IV site checked: no pain, redness, or swelling. IV flushed thoroughly pre- and post-medication administration. IVP given by RN. --08:28 Shalonda Nunez R.N. 08:45 02/13/2017 IV Fluids IV NS via IV site #1 Rate Changed: bag #1 decreased to 500 mL/hr via IV pump. IV patency established. IV site checked: no pain, redness, or swelling. IV flushed thoroughly. Confirmed 5 Rights. --08:45 Shalonda Nunez R.N. 08:46 02/13/2017 Dilaudid (HYDROmorphone HCl PF) IVP 1 mg given over 1 minute(s) via site #1. Allergies verified, confirmed 5 rights and sedative warning given to the patient. IV patency established. IV site checked: no pain, redness, or swelling. IV flushed thoroughly pre- and post-medication administration. IVP given by RN. --08:46 Shalonda Nunez R.N. 09:23 02/13/17. Checked patient name and birthdate: patient confirmed. Clean catch urine collected with return of yellow-colored clear urine; sample sent to lab for urinalysis. Specimen labeled in the presence of the patient. --09:23 Shalonda Nunez R.N. 09:58 02/13/2017 Levofloxacin PO 750 mg given. Allergies verified and confirmed 5 rights. --09:58 Shalonda Nunez R.N. 09:58 02/13/2017 Flagyl (MetroNIDAZOLE) PO 1000 mg given. Allergies verified and confirmed 5 rights. --09:58 Shalonda Nunez R.N. DISPOSITION / DISCHARGE 10:03 02/13/2017 Site #1 removed upon discharge. Catheter intact. Manual pressure and bandage applied. --10:13 Shalonda Nunez R.N. 10:03 02/13/2017 IV Fluids IV NS Discontinued: bag #1 infused upon discharge. Total amount infused: 1000 mL. IV patency established. IV site checked: no pain, redness, or swelling. IV flushed thoroughly. --10:13 Shalonda Nunez R.N. Departure time: 10:Feb 13 2017. Condition at departure: improved and stable. No learning barriers present. Discharge instructions provided and reviewed with the patient. Reviewed medication(s) side effects, precautions and dosing information. Prescription(s) given to the patient. Patient verbalized understanding. Written instructions provided in Beninese. The patient was discharged by the physician. She was discharged home and accompanied by teller vault. She left the Emergency Department ambulatory and via private vehicle. Collection Specialist driving. --10:15 Shalonda Nunez R.N. 10:13 02/13/17. BP: 123/77. HR: 63. RR: 16. O2 saturation: 95% on room air. Temp: 97.5 F (oral). Pain level now: 12/17. --10:15 Shalonda Nunez R.N. Locked/Released at 02/13/2017 10:15 by Shalonda Nunez R.N.
--- NOTE | 2017-02-13 09:40 | ED CLINICAL REPORT ---
Clinical Report - Physicians/Mid Levels [facility] [address] [place] [address] 02/13/2017 7:27 Patient: VESNA KRUSE Time Seen: 07:36. Arrived- By ambulance. Historian- patient and EMS personnel. HISTORY OF PRESENT ILLNESS Chief Complaint: ABDOMINAL PAIN. At its maximum, severity described as severe. When seen in the E.D., severity described as severe. Modifying factors- worsened by movement. Relieved by rest. It is described as "pain". No radiation. It is described as located in the lower abdomen and in the left lower quadrant and left pelvis. This started about 3 days ago and is still present. It was gradual in onset and has been waxing/waning. The patient has had nausea. No vomiting or diarrhea. (Treatment SOCIAL SCIENCES INSTRUCTOR: Medications given- Fentanyl IVP, morphine IVP and ondanestron.). Similar symptoms previously: Many times. Recent medical care: The patient was seen recently at this facility in the emergency department. Diagnosis: urinary tract infection. REVIEW OF SYSTEMS The patient is post-menopausal. She has had constipation. No black stools, hematemesis, difficulty with urination, pain with urination or urinary frequency. No bloody stools, fever, headache, sore throat or chest pain. No difficulty breathing, cough or back pain. Denies current . Last bowel movement: 3 days ago. All systems otherwise negative, except as recorded above. PAST HISTORY PCP: [facility] See nurses notes. PROBLEMS: Hepatitis. UTI - Urinary Tract Infection. Hypertension. Drug Poisoning. Constipation. Allergic Reaction. Gastroenteritis. Muscle Strain, Lower Extremity. Cervical Strain. Colitis. Dental Caries. Dental Abscess. Dental Pain. Atypical Chest Pain. Pleurisy. Hyperlipidemia. Bronchitis. Pyelonephritis. COPD - Chronic Obstructive Pulmonary Disease. Urinary Calculi. Nephropathy. Peptic Ulcer Disease. Heart Disease. Lung Disease. Gastroesophageal Reflux Disease. Diverticulitis. Valvular Heart Disease. Chest Wall Pain. Chest Pain. Abdominal Pain. Vomiting. Diarrhea. Chest Pain of GI Origin [RuleOut]. Diverticulitis [RuleOut] SURGERIES: Ablation. Back pain stimulator implanted 07-24. Cholecystectomy. Colectomy. Hernia Repair. Valve Replacement. SOCIAL HISTORY Former smoker. No alcohol use or drug use. Residence: [facility]. ADDITIONAL NOTES The nursing notes have been reviewed. PHYSICAL EXAM Vital Signs: 02/13/2017 07:28 BP: 140/46. HR: 66. RR: 20. O2 saturation: 94%. Temp: 97.9 F. Pain level now: 10. Appearance: Alert. Oriented X3. Patient in moderate distress. Eyes: Eyes normal inspection. No scleral icterus or pale conjunctivae. ENT: Pharynx normal. No pharyngeal erythema or tonsillar exudate. The mucous membranes are not dry. Neck: Normal inspection. Neck supple. CVS: Normal heart rate and rhythm. Heart sounds normal. Pulses normal. Respiratory: No respiratory distress. Breath sounds normal. Abdomen: Soft. Moderate tenderness in the left lower quadrant and lower abdomen. No mass. No rebound tenderness or guarding. Back: Normal inspection. No tenderness. Skin: Skin warm and dry. Normal skin color. Normal skin turgor. Extremities: Extremities exhibit normal ROM. No calf tenderness. No lower extremity edema. Neuro: Oriented X 3. No motor deficit. LABS, X-RAYS, AND EKG Abdominal CT: IMPRESSION: 1. Mild, uncomplicated sigmoid diverticulitis. 2. Moderate obstipation of the proximal sigmoid. 3. Mild diffuse colonic obstipation. 4. Prior transverse colonic anastomosis. 5. Small lymph nodes adjacent to the ascending colon, probably reactive. Correlate with results of any prior colonoscopies. 6. Status post cholecystectomy and hysterectomy. Study type: abdomen and pelvis. Abdominal CT performed without contrast. The study was independently viewed by me, interpreted by the radiologist and discussed with the radiologist. Laboratory Tests: CBC w Diff: (CAREY: 02/13/2017 08:18) ( MsgRcvd 02/13/2017 08:34) Final results Test Result Flag Units (Reference) WHITE BLOOD COUNT 9.4 K/uL (4.5-11.5) RED BLOOD COUNT 4.76 M/uL (4.00-5.20) HEMOGLOBIN 13.8 gm/dL (12.0-16.0) HEMATOCRIT 42.0 % (36.0-46.0) MEAN CELL VOLUME 88 fL (80-100) MEAN CORPUSCULAR HGB 29 pg (26-34) MEAN CORPUSCULAR HGB CONC 33 g/dL (31-37) RED CELL DISTRIBUTION WIDTH 13.1 % (11.6-14.8) PLATELET COUNT 245 K/uL (150-400) NEUTROPHIL % 72.1 % (50-75) LYMPH % 20.4 L % (25-40) MONO % 5.1 % (3-14) EOSINOPHIL % 2.1 % (0-4) BASOPHIL % 0.3 % (0-2) PT with INR: (CAREY: 02/13/2017 08:18) ( [facility] 02/13/2017 08:37) Final results Test Result Flag Units (Reference) INR 0.8 (0.8-1.2) Low Intensity Therapy: INR 1.5-2.0 PT range 18.5-23.1Mod.Intensity Therapy: INR 2.0-3.0 PT range 23.1-31.5High Intensity Therapy: INR 2.5-3.5 PT range 27.4-35.5High Intensity Therapy 2: INR 3.0-4.0 PT range 31.5-39.3 BNP: (CAREY: 02/13/2017 08:18) ( [facility] 02/13/2017 08:49) Final results Test Result Flag Units (Reference) B-TYPE NATRIURETIC PEPTIDE 152 H pg/ml (5-100) Lactate, Serum: (CAREY: 02/13/2017 08:18) ( [facility] 02/13/2017 08:50) Final results Test Result Flag Units (Reference) LACTIC ACID <0.3 L mmol/L (0.4-2.0) . Pulse Oximetry: 02/13/2017 10:13 O2 saturation: 95%. (FIO2 - room air). Interpretation: normal. PROGRESS AND PROCEDURES Course of Care: Normal Saline 1 liter IVPB given. Levaquin 750 mg PO given. Zofran 4 mg IVP given. Dilaudid 1 mg IVP given. Flagyl 500 mg PO given. Patient is stable. Physical exam findings are improved. Symptoms much better. Patient/family counseled. Old ED records reviewed. Patient has had multiple ED visits ([facility] with 10 visits to ED's in past 12 months ([facility] x 5, [facility] x 5)). Disposition: Discharged. Condition: stable and improved. CLINICAL IMPRESSION Acute left lower quadrant abdominal pain of unknown cause. Acute diverticulitis of the colon. No perforation, bleeding, abscess, peritonitis or obstruction. Constipation Essential hypertension. INSTRUCTIONS Drink plenty of fluids. (MANDATORY RECHECK IN 12 - 24 HOURS UNLESS BETTER). Warnings: Further evaluation is necessary in order to conduct further tests (you will need to follow up closely with your gastroenterology specialists and surgeon and may need a repeat colonoscopy). It is very important to follow up with a physician. SEDATIVE MEDICATION: You were given sedative medication during your visit. Do not drive or operate dangerous machinery. CONTROLLED SUBSTANCE WARNINGS. GENERAL WARNINGS: Return or contact your physician immediately if your condition worsens or changes unexpectedly, if not improving as expected, or if other problems arise. Your Current Medications: STOP TAKING THE FOLLOWING MEDICATIONS: TraMADol HCl Oral : 50 mg 4x a day. CONTINUE TAKING THE FOLLOWING MEDICATIONS: Calcium Carb-Cholecalciferol Oral : 1 tab daily. Cyanocobalamin Injection : 1 tab daily. Cyclobenzaprine HCl Oral : 10 mg 2x a day. Estroven* : daily. Fiber Therapy Oral : daily. HydrOXYzine HCl Oral : 25 mg 4x a day. Lidocaine External : as directed. Metoprolol Tartrate Oral : 100 mg bid. Nitroglycerin Translingual : prn. ProAir HFA Inhalation : 2x a day. Probiotic Oral : daily. Simvastatin Oral : Tablet 10 mg, daily. Tylenol PM Extra Strength Oral : Tablet 500-25 mg, 2 tablets hs. Prescription Medications: Hydrocodone/APAP 5mg / 325mg: take 1-2 orally every 8 hours as needed for pain. Dispense ten (10). No refill. Cipro 500 mg: take 1 tab orally every 12 hours for 10 days. Dispense twenty (20). No refills. Substitution is permissible. Flagyl 500 mg: Take 1 tablet orally every 12 hours for 10 days. No refill. Substitution is permissible GoLYTELY: take 8 ounces every 10 minutes until consumed. Dispense four (4) Liter jug. No refill. Substitution is permissible. Follow-up: Follow up with your doctor [facility], Surgeon and senior sales consultant tomorrow. Screening today revealed the patient's blood pressure to be in the hypertensive range. The patient should follow up with a primary care provider for blood pressure management. (Electronically signed by Deepak Gates DO 02/13/2017 11:19)
--- NOTE | 2017-02-13 09:40 | ED ORDER SUMMARY ---
..... Patient: VESNA KRUSE OrderSheet [facility]ly [facility] VisitID: [id number] [address] [place] [address] 61y, F Registration Date/Time: 02/13/2017 ORDER SHEET Weight: 73.0 kg (stated) Allergies: IV Contrast GENERAL ORDERS: Old Records ([facility]) (07:38 02/13/2017 PHutchinson DO) (Ack 7:41 TBergley) (7:59 MWinterer R.N.) Abd Series 2V Abd/1V Chest Urgent (07:53 02/13/2017 PHutchinson DO) (Ack 7:54 TBergley) (7:55 PHutchinson DO) (Cancelled: Other7:55 PHutchinson DO) UA-Culture if indicated Urgent (07:53 02/13/2017 PHutchinson DO) (Ack 7:54 TBergley) (9:22 MWinterer R.N.) Amylase Urgent (07:53 02/13/2017 PHutchinson DO) (Ack 7:54 TBergley) (8:27 MWinterer R.N.) Lipase Urgent (07:53 02/13/2017 PHutchinson DO) (Ack 7:54 TBergley) (8:27 MWinterer R.N.) Cardiac Panel Stat (07:53 02/13/2017 PHutchinson DO) (Ack 7:54 TBergley) (8:27 MWinterer R.N.) PT with INR Urgent (07:53 02/13/2017 PHutchinson DO) (Ack 7:54 TBergley) (8:27 MWinterer R.N.) Lactate, Serum Urgent (07:53 02/13/2017 PHutchinson DO) (Ack 7:54 TBergley) (8:27 MWinterer R.N.) BNP Urgent (07:53 02/13/2017 PHutchinson DO) (Ack 7:54 TBergley) (8:27 MWinterer R.N.) NPO (07:53 02/13/2017 PHutchinson DO) (Ack 7:54 TBergley) (7:59 MWinterer R.N.) CT Abd/Pel wo Cont (LLQ; contrast allergy) Urgent (07:55 02/13/2017 [facility]) (Ack 7:59 TBergley) (8:27 TBergley) MEDICATION ORDERS: - (Fleets enema x 2 (oil then water based)) (07:53 02/13/2017 [facility]) (Cancelled: Patient Refusal8:00 [facility]) Levofloxacin PO 750 mg (NOW) (09:34 02/13/2017 [facility]) (Ack 9:52 MWinterer R.N.) (9:58 MWinterer R.N.) Flagyl PO 1000 mg (NOW) (09:34 02/13/2017 [facility]) (Ack 9:52 MWinterer R.N.) (9:58 MWinterer R.N.) IV FLUIDS: IV NS : initial bolus 500 mL (1000 mL/hr), then 500 mL/hr for X1 (NOW) (07:52 02/13/2017 [facility]) (8:28 MWinterer R.N.) Zofran IV 4 mg (NOW) (07:52 02/13/2017 [facility]) (8:28 MWinterer R.N.) Dilaudid IV 1 mg (HIGH ALERT MEDICATION, NOW) (08:02 02/13/2017 [facility]) (Ack 8:28 MWinterer R.N.) (8:46 MWinterer R.N.) ORDER SHEET NOTES: [Electronically signed by Shalonda Nunez R.N. (10:15 02/13/2017)] [Electronically signed by Deepak Gates DO (11:19 02/13/2017)] [Electronically locked/signed by Shalonda Nunez R.N. (10:15 02/13/2017)]
--- NOTE | 2017-02-13 09:40 | ED NURSING NOTES ---
Clinical Report - Nurses [facility] [address] [place] [address] 02/13/2017 7:27 Patient: VESNA KRUSE TRIAGE Acuity: LEVEL 3. Chief Complaint: ABDOMINAL PAIN. Alert. No acute distress. --07:32 Shalonda Nunez R.N. 07:28 02/13/17. BP: 140/46. HR: 66. RR: 20. O2 saturation: 94% on room air. Temp: 97.9 F (oral). Pain level now: 9/10. --:32 Shalonda Nunez R.N. Weight: 73 kg stated. Height/Length: 62 inches Per Patient. BMI: 29.5. --07:32 Shalonda Nunez R.N. Medications Calcium Carb-Cholecalciferol Oral 1 tab, daily. Cyanocobalamin Injection 1 tab, daily. Cyclobenzaprine HCl Oral 10 mg, 2x a day. Estroven, daily. Fiber Therapy Oral, daily. HydrOXYzine HCl Oral 25 mg, 4x a day. Lidocaine External, as directed. Metoprolol Tartrate Oral 100 mg, bid. Nitroglycerin Translingual, as needed. ProAir HFA Inhalation, 2x a day. Probiotic Oral, daily. Simvastatin Oral (Tablet 10 mg), daily. TraMADol HCl Oral 50 mg, 4x a day. Tylenol PM Extra Strength Oral (Tablet 500-25 mg) 2 tablets, hs. --07: Shalonda Nunez R.N. Medication/allergy information source: the patient. --07:32 Shalonda Nunez R.N. Allergies IV Contrast. --: Shalonda Nunez R.N. History Arrived by EMS. Historian: patient. Unaccompanied. Primary physician ([facility]). This started last night. Describes the quality as "pain" and sharp. Relates location as in the periumbilical area. Notes pain level as 9/10 on arrival. She has had constipation. Reports last BM was 3 days ago. Treatment TIN POT OPERATOR: None. PAST MEDICAL HX: The patient is post-menopausal. SOCIAL HX: Never smoker. No alcohol use or drug use. FALL RISK ASSESSMENT: Fall risk assessment completed. No fall risk identified. NUTRITIONAL RISK ASSESSMENT: The nutritional risk assessment revealed no deficiencies. FUNCTIONAL ASSESSMENT: Functional assessment: no impairments noted. LEARNING NEEDS ASSESSMENT: The learning needs assessment revealed no barriers. SKIN INTEGRITY ASSESSMENT: Skin integrity risk assessment completed. No skin integrity risk identified. --07:32 Shalonda Nunez R.N. Treatment TIN POT OPERATOR: Medications given- Fentanyl IVP, morphine IVP and ondanestron. --07:33 Shalonda Nunez R.N. PROBLEMS: Upper Extremity Pain. Hepatitis. UTI - Urinary Tract Infection. Hypertension. Drug Poisoning. Constipation. Allergic Reaction. Gastroenteritis. Muscle Strain, Lower Extremity. Cervical Strain. Colitis. Dental Caries. Dental Abscess. Dental Pain. Atypical Chest Pain. Pleurisy. Bronchitis. Pyelonephritis. COPD - Chronic Obstructive Pulmonary Disease. Urinary Calculi. Nephropathy. Peptic Ulcer Disease. Heart Disease. Lung Disease. LNMP - Last Normal Menstrual Period. Gastroesophageal Reflux Disease. Diverticulitis. Valvular Heart Disease. Chest Wall Pain. Chest Pain. Abdominal Pain. Vomiting. Diarrhea. Immunizations. --07:30 Shalonda Nunez R.N. ADDITIONAL SURGERIES: Ablation. Back pain stimulator implanted 07-24. Cholecystectomy. Colectomy. Hernia Repair. Valve Replacement. --07:30 Shalonda Nunez R.N. Assessment GENERAL / NEURO / PSYCH: Alert. Oriented X 4. Appears in no acute distress. Edward Coma Scale: 15- eyes open spontaneously (4); best verbal response- oriented x 4 (5); best motor response- obeys commands (6). Patient appears calm and cooperative. RESPIRATORY: Respirations not labored. CVS: Capillary refill less than 2 seconds. GI / : Abdomen soft. Abdominal tenderness. SKIN: Mucous membranes are pink. Skin is warm and dry. --07:32 Shalonda Nunez R.N. Interventions ID band on patient. To treatment room. --07:32 Shalonda Nunez R.N. 07:33 02/13/2017 Site #1 started prior to arrival by EMS via IV in the left hand with an 20g angiocath. --07:33 Shalonda Nunez R.N. NURSING PROGRESS NOTES 07:32 02/13/17. Patient gowned. Two patient identifiers checked. Call light placed in reach. Side rails up x 2. Bed placed in lowest position. Brakes of bed on. Patient ready for evaluation- chart flagged and ED physician notified. --07:33 Shalonda Nunez R.N. 08:28 02/13/2017 Started bag #1 1000 mL IV Fluids IV NS (Saline); at 999 mL/hr over 30 minute(s) via site #1 via IV pump. Allergies verified and confirmed 5 rights. IV patency established. IV site checked: no pain, redness, or swelling. IV flushed thoroughly pre- and post-medication administration. --08:28 Shalonda Nunez R.N. 08:28 02/13/2017 Zofran (Ondansetron HCl) IVP 4 mg given over 1 minute(s) via site #1. Allergies verified and confirmed 5 rights. IV patency established. IV site checked: no pain, redness, or swelling. IV flushed thoroughly pre- and post-medication administration. IVP given by RN. --08:28 Shalonda Nunez R.N. 08:45 02/13/2017 IV Fluids IV NS via IV site #1 Rate Changed: bag #1 decreased to 500 mL/hr via IV pump. IV patency established. IV site checked: no pain, redness, or swelling. IV flushed thoroughly. Confirmed 5 Rights. --08:45 Shalonda Nunez R.N. 08:46 02/13/2017 Dilaudid (HYDROmorphone HCl PF) IVP 1 mg given over 1 minute(s) via site #1. Allergies verified, confirmed 5 rights and sedative warning given to the patient. IV patency established. IV site checked: no pain, redness, or swelling. IV flushed thoroughly pre- and post-medication administration. IVP given by RN. --08:46 Shalonda Nunez R.N. 09:23 02/13/17. Checked patient name and birthdate: patient confirmed. Clean catch urine collected with return of yellow-colored clear urine; sample sent to lab for urinalysis. Specimen labeled in the presence of the patient. --09:23 Shalonda Nunez R.N. 09:58 02/13/2017 Levofloxacin PO 750 mg given. Allergies verified and confirmed 5 rights. --09:58 Shalonda Nunez R.N. 09:58 02/13/2017 Flagyl (MetroNIDAZOLE) PO 1000 mg given. Allergies verified and confirmed 5 rights. --09:58 Shalonda Nunez R.N. DISPOSITION / DISCHARGE 10:03 02/13/2017 Site #1 removed upon discharge. Catheter intact. Manual pressure and bandage applied. --10:13 Shalonda Nunez R.N. 10:03 02/13/2017 IV Fluids IV NS Discontinued: bag #1 infused upon discharge. Total amount infused: 1000 mL. IV patency established. IV site checked: no pain, redness, or swelling. IV flushed thoroughly. --10:13 Shalonda Nunez R.N. Departure time: 10:Feb 13 2017. Condition at departure: improved and stable. No learning barriers present. Discharge instructions provided and reviewed with the patient. Reviewed medication(s) side effects, precautions and dosing information. Prescription(s) given to the patient. Patient verbalized understanding. Written instructions provided in Swedish. The patient was discharged by the physician. She was discharged home and accompanied by counter clerk tractor parts. She left the Emergency Department ambulatory and via private vehicle. Printing Press Operator Apprentice driving. --10:15 Shalonda Nunez R.N. 10:13 02/13/17. BP: 123/77. HR: 63. RR: 16. O2 saturation: 95% on room air. Temp: 97.5 F (oral). Pain level now: 12/17. --10:15 Shalonda Nunez R.N. Locked/Released at 02/13/2017 10:15 by Shalonda Nunez R.N.
--- NOTE | 2017-02-13 09:43 | DIAGNOSTIC IMAGING REPORT ---
PROCEDURE: CT ABDOMEN/PELVIS W/O CONTRAST INDICATION: CONSTIPATION TECHNIQUE: Axial CT images were obtained through the abdomen and pelvis without IV contrast. Coronal and sagittal reformations were created. COMPARISON: 11/23/2015 FINDINGS: Circumferential wall thickening of the distal sigmoid with moderate diverticular disease and mild van colonic inflammation. In the proximal sigmoid, there is moderately increased amount of solid stool as well as mild diverticular disease and pericolonic inflammation around this segment as well. Mild pericolonic inflammation extends proximally to the transverse colon which also demonstrates mildly increased amount of retained stool. There is moderate retained solid stool throughout the remaining colon. A staple line anastomoses in the distal transverse colon is seen. There are small pericolonic lymph nodes adjacent to the cecum. There is no extraluminal gas, adjacent fluid, or free pelvic fluid. The gallbladder surgically absent. Mild aortic atherosclerotic calcification. No bulky retroperitoneal adenopathy. No urinary calcifications. Multiple surgical tacks of prior anterior abdominal wall hernia repair. Nerve stimulator in place in the left flank. Clear lung bases. Normal sized heart. No hiatal hernia. The unenhanced appearance of the liver, adrenal glands, kidneys, pancreas and spleen is normal. The abdominal aorta is normal in its course and caliber. There are no suspicious calcifications, retroperitoneal adenopathy or masses. The uterus is surgically absent. The unenhanced appearance of the urinary bladder, pelvic vessels, and pelvic bowel loops is normal. Normal appendix. No suspicious calcifications, free pelvic fluid or mass. Intact osseous structures. Degenerative changes in the pubic symphysis, lumbar discs, and facet joints. IMPRESSION: 1. Mild, uncomplicated sigmoid diverticulitis. 2. Moderate obstipation of the proximal sigmoid. 3. Mild diffuse colonic obstipation. 4. Prior transverse colonic anastomosis. 5. Small lymph nodes adjacent to the ascending colon, probably reactive. Correlate with results of any prior colonoscopies. 6. Status post cholecystectomy and hysterectomy. 7. Discussed with Dr. Gates in the emergency room. All CT scans at this facility use dose modulation, iterative reconstruction, and/or weight-based dosing when appropriate to reduce radiation dose to as low as reasonably achievable.
--- NOTE | 2017-02-13 11:20 | ED MAR SUMMARY ---
..... Medication Administration Record [facility] [address] [place] [address] Patient: VESNA KRUSE Visit ID: [id number] 61y, F Weight: 73.0 kg Height/Length: 62 in BMI: 29.5 ALLERGIES: IV Contrast Start 08:28 02/13/2017 Shalonda Nunez R.N., Stop 10:03 02/13/2017 Shalonda Nunez R.N. Medication Administered: IV NS (SALINE), Dose: IV Fluids over 30 minute(s), Rate: 999 mL/hr, Dispensed: 1000 mL bag, Site: #1 left hand. Medication Ordered: IV NS : initial bolus 500 mL (1000 mL/hr), then 500 mL/hr for X1 (NOW). Given 08:02/13/2017 Shalonda Nunez R.N. Medication Administered: ZOFRAN [IVP] (ONDANSETRON HCL), Dose: 4 mg IVP over 1 minute(s), Site: #1 left hand. Medication Ordered: Zofran IV 4 mg (NOW). Given 08:46 02/13/2017 Shalonda Nunez R.N. Medication Administered: DILAUDID [IVP] (HYDROMORPHONE HCL PF), Dose: 1 mg IVP over 1 minute(s), Site: #1 left hand. Medication Ordered: Dilaudid IV 1 mg (HIGH ALERT MEDICATION, NOW). Given 09:02/13/2017 Shalonda Nunez R.N. Medication Administered: LEVOFLOXACIN [PO], Dose: 750 mg PO. Medication Ordered: Levofloxacin PO 750 mg (NOW). Given 02/13/2017 Shalonda Nunez R.N. Medication Administered: FLAGYL [PO] (METRONIDAZOLE), Dose: 1000 mg PO. Medication Ordered: Flagyl PO 1000 mg (NOW).
--- NOTE | 2017-02-13 11:20 | ED MED RECONCILIATION SUMMARY ---
Patient: VESNA KRUSE Medication Reconciliation Report [facility] VisitID: [id number] [address] [place] [address] 61y, F Registration Date/Time: 02/13/2017 Weight: 73.0 kg Height/Length: 62 in. BMI: 29.5 ALLERGIES: IV Contrast The patient's Home Medications are listed below: STOP TAKING THE FOLLOWING MEDICATIONS: TraMADol HCl Oral 50 mg, 4x a day CONTINUE TAKING THE FOLLOWING MEDICATIONS: Calcium Carb-Cholecalciferol Oral 1 tab, daily Cyanocobalamin Injection 1 tab, daily Cyclobenzaprine HCl Oral 10 mg, 2x a day Estroven, daily Fiber Therapy Oral, daily HydrOXYzine HCl Oral 25 mg, 4x a day Lidocaine External, as directed Metoprolol Tartrate Oral 100 mg, bid Nitroglycerin Translingual ProAir HFA Inhalation, 2x a day Probiotic Oral, daily Simvastatin Oral (10 mg), daily Tylenol PM Extra Strength Oral (500-25 mg) 2 tablets, hs The source(s) of the original Home Medication information: patient The following Medications were given to the patient in the Emergency Department: IV NS IV Fluids bolus 0, then 999 mL/hr, administered: 02/13/2017 8:28:00 AM Zofran [IVP] IVP 4 mg, administered: 02/13/2017 8:28:00 AM Dilaudid [IVP] IVP 1 mg, administered: 02/13/2017 8:46:00 AM Levofloxacin [PO] PO 750 mg, administered: 02/13/2017 9:58:00 AM Flagyl [PO] PO 1000 mg, administered: 02/13/2017 9:58:00 AM The following Medications were prescribed to the patient: Hydrocodone/APAP 5mg / 325mg: take 1-2 orally every 8 hours as needed for pain. Dispense ten (10). No refill. -- Deepak Gates DO Cipro 500 mg: take 1 tab orally every 12 hours for 10 days. Dispense twenty (20). No refills. Substitution is permissible. -- Deepak Gates DO Flagyl 500 mg: Take 1 tablet orally every 12 hours for 10 days. No refill. Substitution is permissible -- Gates, Peter, DO GoLYTELY: take 8 ounces every 10 minutes until consumed. Dispense four (4) Liter jug. No refill. Substitution is permissible. -- Deepak Gates, DO
--- NOTE | 2017-02-13 11:20 | ED MED RECONCILIATION SUMMARY ---
Patient: VESNA KRUSE Medication Reconciliation Report [facility] VisitID: [id number] [address] [place] [address] 61y, F Registration Date/Time: 02/13/2017 Weight: 73.0 kg Height/Length: 62 in. BMI: 29.5 ALLERGIES: IV Contrast The patient's Home Medications are listed below: STOP TAKING THE FOLLOWING MEDICATIONS: TraMADol HCl Oral 50 mg, 4x a day CONTINUE TAKING THE FOLLOWING MEDICATIONS: Calcium Carb-Cholecalciferol Oral 1 tab, daily Cyanocobalamin Injection 1 tab, daily Cyclobenzaprine HCl Oral 10 mg, 2x a day Estroven, daily Fiber Therapy Oral, daily HydrOXYzine HCl Oral 25 mg, 4x a day Lidocaine External, as directed Metoprolol Tartrate Oral 100 mg, bid Nitroglycerin Translingual ProAir HFA Inhalation, 2x a day Probiotic Oral, daily Simvastatin Oral (10 mg), daily Tylenol PM Extra Strength Oral (500-25 mg) 2 tablets, hs The source(s) of the original Home Medication information: patient The following Medications were given to the patient in the Emergency Department: IV NS IV Fluids bolus 0, then 999 mL/hr, administered: 02/13/2017 8:28:00 AM Zofran [IVP] IVP 4 mg, administered: 02/13/2017 8:28:00 AM Dilaudid [IVP] IVP 1 mg, administered: 02/13/2017 8:46:00 AM Levofloxacin [PO] PO 750 mg, administered: 02/13/2017 9:58:00 AM Flagyl [PO] PO 1000 mg, administered: 02/13/2017 9:58:00 AM The following Medications were prescribed to the patient: Hydrocodone/APAP 5mg / 325mg: take 1-2 orally every 8 hours as needed for pain. Dispense ten (10). No refill. -- Deepak Gates DO Cipro 500 mg: take 1 tab orally every 12 hours for 10 days. Dispense twenty (20). No refills. Substitution is permissible. -- Deepak Gates DO Flagyl 500 mg: Take 1 tablet orally every 12 hours for 10 days. No refill. Substitution is permissible -- Gates, Peter, DO GoLYTELY: take 8 ounces every 10 minutes until consumed. Dispense four (4) Liter jug. No refill. Substitution is permissible. -- Deepak Gates, DO
--- NOTE | 2017-02-13 11:20 | ED DISCHARGE INSTRUCTIONS ---
Patient: VESNA KRUSE General Instructions [facility] VisitID: [id number] [address] [place] [address] 61y, F Registration Date/Time: 02/13/2017 Acute left lower quadrant abdominal pain of unknown cause. Acute diverticulitis of the colon. No perforation, bleeding, abscess, peritonitis or obstruction. Constipation Essential hypertension. INSTRUCTIONS Drink plenty of fluids. (MANDATORY RECHECK IN 12 - 24 HOURS UNLESS BETTER). Warnings: Further evaluation is necessary in order to conduct further tests (you will need to follow up closely with your gastroenterology specialists and surgeon and may need a repeat colonoscopy). It is very important to follow up with a physician. SEDATIVE MEDICATION: You were given sedative medication during your visit. Do not drive or operate dangerous machinery. CONTROLLED SUBSTANCE WARNINGS. GENERAL WARNINGS: Return or contact your physician immediately if your condition worsens or changes unexpectedly, if not improving as expected, or if other problems arise. Your Current Medications: STOP TAKING THE FOLLOWING MEDICATIONS: TraMADol HCl Oral : 50 mg 4x a day. CONTINUE TAKING THE FOLLOWING MEDICATIONS: Calcium Carb-Cholecalciferol Oral : 1 tab daily. Cyanocobalamin Injection : 1 tab daily. Cyclobenzaprine HCl Oral : 10 mg 2x a day. Estroven* : daily. Fiber Therapy Oral : daily. HydrOXYzine HCl Oral : 25 mg 4x a day. Lidocaine External : as directed. Metoprolol Tartrate Oral : 100 mg bid. Nitroglycerin Translingual : prn. ProAir HFA Inhalation : 2x a day. Probiotic Oral : daily. Simvastatin Oral : Tablet 10 mg, daily. Tylenol PM Extra Strength Oral : Tablet 500-25 mg, 2 tablets hs. Prescription Medications: Hydrocodone/APAP 5mg / 325mg: take 1-2 orally every 8 hours as needed for pain. Dispense ten (10). No refill. Cipro 500 mg: take 1 tab orally every 12 hours for 10 days. Dispense twenty (20). No refills. Substitution is permissible. Flagyl 500 mg: Take 1 tablet orally every 12 hours for 10 days. No refill. Substitution is permissible GoLYTELY: take 8 ounces every 10 minutes until consumed. Dispense four (4) Liter jug. No refill. Substitution is permissible. 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 Screening today revealed the patient's blood pressure to be in the hypertensive range. The patient should follow up with a primary care provider for blood pressure management. ADDITIONAL INFORMATION Constipation (Adult) Constipation is bowel movements that are less frequent than usual. Stools often become very hard and difficult to pass. This may lead to abdominal pain and bloating. It may also cause painful bowel movements. Constipation may be due to a diet thats low in fiber. Some medications, especially pain medications, can also cause it. Constipation may be treated with enemas, suppositories, laxatives or stool softeners. Your doctor will advise you which will work best for you. Follow the advice below to help avoid this problem in the future. Home Care Medication: Take any medicines as directed. Some laxatives are safe only for occasional use. Others can be taken on a regular basis. Talk to your doctor or pharmacist if you have questions. General Care: Prescription pain medications can cause constipation. If you are prescribed pain medications, ask the doctor whether you should also take a stool softener. A diet high in fiber with plenty of fluids helps to maintain regular, soft bowel movements. The following foods are good sources of dietary fiber: Cereals and breads: Whole grain cereal with bran, oatmeal, rolled oats, whole grain breads Fruits: All fruits (fresh and dried), raisins, prunes, apricots, berries, figs Vegetables: Any fresh vegetables, especially peas, broccoli, brussels sprouts, winter squash, green beans, cauliflower, mcgee beans, carrots Other: Popcorn, brown rice Drink plenty of water when you increase the amount of fiber you eat. Follow Up with your doctor or return to this facility if symptoms do not improve in the next few days. You may require further tests or a referral to a specialist. Get Prompt Medical Attention if any of the following occur: Fever over 100.4F (38C) Failure to resume normal bowel movements Increasing abdominal or back pain Nausea or vomiting Abdominal swelling Blood in the stool Weakness, dizziness or fainting Unexpected vaginal bleeding Diverticulitis Some people develop pouches along the wall of the colon as they get older. The pouches,called diverticuli, usually cause no symptoms. If the pouches become blocked, an infection may occur known as diverticulitis. This causes lower abdominal pain and fever. If not treated, it can become a serious condition, causing an abscess to form inside the pouch. The abscess may block the instestinal tract even or rupture, spreading infection throughout the abdomen. When treatment is started early, oral antibiotics alone may be enough to cure diverticulitis. This method is tried first. However, if you do not improve or if your condition worsens while you are trying oral antibiotics, it will be necessary to admit you to the hospital for IV antibiotics. Severe cases may require surgery. Home care The following guidelines will help you care for your diverticulitis at home: During the acute illness, rest and follow a low-fiber diet: Foods to Include: flake cereal, mashed potatoes, pancakes, waffles, pasta, white bread, rice, applesauce, bananas, eggs, meat, fish, poultry, tofu, cooked vegetables. Take antibiotics exactly as directed. Do not miss any doses or stop taking the medication, even if you feel better. Monitor your temperature and report any rising temperature to your doctor. Preventing future attacks Once you have had an episode of diverticulitis, you are at risk of having a recurrence. After you have recovered from this episode, you may be able to reduce your risk by eating a high-fiber diet (2035 gm/day of fiber). This cleans out the colon pouches that already exist and prevent new ones from forming. Foods high in fiber includes fresh fruits and edible peelings, raw or lightly cooked vegetables, whole grain cereals and breads, dried beans and peas, bran. Follow-up care Follow up with your doctor as advised or sooner if you are not improving in the nexttwo days. When to seek medical care Get prompt medical attention if any of the following occur: Fever of 100.4F (38C) or higher, or as directed by your health care provider Repeated vomiting or swelling of the abdomen Weakness, dizziness, light-headedness Increasing abdominal pain that becomes severe or spreads to your back Pain that moves to the right lower abdomen Rectal bleeding (red, black or maroon color of the stools) Unexpected vaginal bleeding High Blood Pressure --Established High Blood Pressure (Hypertension) is a chronic disease. The cause is unknown in most cases. It can usually be controlled with lifestyle changes and/or medicines. Symptoms of high blood pressure may include headache, dizziness, visual changes, chest pain and shortness of breath. Sometimes it causes no symptoms at all. However, even if there are no symptoms, untreated high blood pressure increases the risk of heart attack, also known as acute myocardial infarction, or AMI, and stroke. It is a serious health risk and should not be ignored. A normal blood pressure is 120/80 or less. The first (top) number is the "systolic" pressure. The second (bottom) number is the "diastolic" pressure. Hypertension exists when either the top number is 140 or higher, OR the bottom number is 90 or higher on repeated measurements. Home Care: All patients with high blood pressure should do the following to lower their pressure. If you are on medicines, then these methods may reduce or eliminate your need for medicines in the future. Begin a weight loss program if you are overweight. Reduce your salt intake. Avoid high salt foods (olives, pickles, smoked meats, salted potato chips, etc.). Do not add salt to your food at the table. Use only small amounts of salt when cooking. Begin an exercise program. Discuss with your doctor what type of exercise program would be best for you. It doesn't have to be difficult. Even brisk walking for 20 minutes three times a week is a good form of exercise. Avoid medicines which contain heart stimulants. This includes many cold and sinus decongestant pills and sprays as well as diet pills. Check the warnings about hypertension on the label. Stimulants such as amphetamine or cocaine could be lethal for someone with hypertension. Never take these. Limit your caffeine intake or switch to caffeine-free products. Stop smoking. If you are a long-time smoker, this can be hard. Enroll in a stop-smoking program to improve your chance of success. Learning how to handle stress better is an important part of any program to lower blood pressure. Learn about relaxation methods such as meditation, yoga or biofeedback. If medicines were prescribed, take them exactly as directed. Missing doses may cause your blood pressure get out of control. Consider buying an automatic blood pressure machine (available at most pharmacies). Use this to monitor your blood pressure at home and report the results to your doctor. Follow Up: Regular visits to your own physician for blood pressure checks and medicine adjustment is an important part of your care. Make a follow-up appointment as directed by our staff. Get Prompt Medical Attention if any of the following occur: Chest pain or shortness of breath Severe headache Throbbing or rushing sound in the ears Nosebleed Sudden severe abdominal pain Extreme drowsiness, confusion or fainting Dizziness or vertigo (dizziness with spinning sensation) Weakness of an arm or leg or one side of the face Difficulty with speech or vision Hydrocodone Bitartrate, Acetaminophen Oral tablet What is this medicine? ACETAMINOPHEN; HYDROCODONE (a set a AIDA lesly fen; everardo droe KOE done) is a pain reliever. It is used to treat mild to moderate pain. How should I use this medicine? Take this medicine by mouth. Swallow it with a full glass of water. Follow the directions on the prescription label. If the medicine upsets your stomach, take the medicine with food or milk. Do not take more than you are told to take. Talk to your director of retail marketing regarding the use of this medicine in children. This medicine is not approved for use in children. What side effects may I notice from receiving this medicine? Side effects that you should report to your doctor or health day care home provider as soon as possible: allergic reactions like skin rash, itching or hives, swelling of the face, lips, or tongue breathing problems confusion feeling faint or lightheaded, falls stomach pain yellowing of the eyes or skin Side effects that usually do not require medical attention (report to your doctor or health day care home provider if they continue or are bothersome): nausea, vomiting stomach upset What may interact with this medicine? alcohol antihistamines isoniazid medicines for depression, anxiety, or psychotic disturbances medicines for sleep muscle relaxants naltrexone narcotic medicines (opiates) for pain phenobarbital ritonavir tramadol What if I miss a dose? If you miss a dose, take it as soon as you can. If it is almost time for your next dose, take only that dose. Do not take double or extra doses. Where should I keep my medicine? Keep out of the reach of children. This medicine can be abused. Keep your medicine in a safe place to protect it from theft. Do not share this medicine with anyone. Selling or giving away this medicine is dangerous and against the law. Store at room temperature between 15 and 30 degrees C (59 and 86 degrees F). Protect from light. Keep container tightly closed. Throw away any unused medicine after the expiration date. Discard unused medicine and used packaging carefully. Pets and children can be harmed if they find used or lost packages. What should I tell my health care provider before I take this medicine? They need to know if you have any of these conditions: brain tumor Crohn's disease, inflammatory bowel disease, or ulcerative colitis drink more than 3 alcohol-containing drinks per day drug abuse or addiction head injury heart or circulation problems kidney disease or problems going to the bathroom liver disease lung disease, asthma, or breathing problems an unusual or allergic reaction to acetaminophen, hydrocodone, other opioid analgesics, other medicines, foods, dyes, or preservatives or trying to get breast-feeding What should I watch for while using this medicine? Tell your doctor or health day care home provider if your pain does not go away, if it gets worse, or if you have new or a different type of pain. You may develop tolerance to the medicine. Tolerance means that you will need a higher dose of the medicine for pain relief. Tolerance is normal and is expected if you take the medicine for a long time. Do not suddenly stop taking your medicine because you may develop a severe reaction. Your body becomes used to the medicine. This does NOT mean you are addicted. Addiction is a behavior related to getting and using a drug for a non-medical reason. If you have pain, you have a medical reason to take pain medicine. Your doctor will tell you how much medicine to take. If your doctor wants you to stop the medicine, the dose will be slowly lowered over time to avoid any side effects. You may get drowsy or dizzy when you first start taking the medicine or change doses. Do not drive, use machinery, or do anything that may be dangerous until you know how the medicine affects you. Stand or sit up slowly. There are different types of narcotic medicines (opiates) for pain. If you take more than one type at the same time, you may have more side effects. Give your health care provider a list of all medicines you use. Your doctor will tell you how much medicine to take. Do not take more medicine than directed. Call emergency for help if you have problems breathing. The medicine will cause constipation. Try to have a bowel movement at least every 2 to 3 days. If you do not have a bowel movement for 3 days, call your doctor or health day care home provider. Too much acetaminophen can be very dangerous. Do not take Tylenol (acetaminophen) or medicines that contain acetaminophen with this medicine. Many non-prescription medicines contain acetaminophen. Always read the labels carefully. Ciprofloxacin Hydrochloride Oral tablet What is this medicine? CIPROFLOXACIN (sip petra FLOX a sin) is a quinolone antibiotic. It is used to treat certain kinds of bacterial infections. It will not work for colds, flu, or other viral infections. How should I use this medicine? Take this medicine by mouth with a glass of water. Follow the directions on the prescription label. Take your medicine at regular intervals. Do not take your medicine more often than directed. Take all of your medicine as directed even if you think your are better. Do not skip doses or stop your medicine early. You can take this medicine with food or on an empty stomach. It can be taken with a meal that contains dairy or calcium, but do not take it alone with a dairy product, like milk or yogurt or calcium-fortified juice. A special MedGuide will be given to you by the pharmacist with each prescription and refill. Be sure to read this information carefully each time. Talk to your director of retail marketing regarding the use of this medicine in children. Special care may be needed. What side effects may I notice from receiving this medicine? Side effects that you should report to your doctor or health day care home provider as soon as possible: - allergic reactions like skin rash, itching or hives, swelling of the face, lips, or tongue - breathing problems - confusion, nightmares or hallucinations - feeling faint or lightheaded, falls - irregular heartbeat - joint, muscle or tendon pain or swelling - pain or trouble passing urine -persistent headache with or without blurred vision - redness, blistering, peeling or loosening of the skin, including inside the mouth - seizure - unusual pain, numbness, tingling, or weakness Side effects that usually do not require medical attention (report to your doctor or health day care home provider if they continue or are bothersome): - diarrhea - nausea or stomach upset - white patches or sores in the mouth What may interact with this medicine? Do not take this medicine with any of the following medications: cisapride droperidol terfenadine tizanidine This medicine may also interact with the following medications: antacids caffeine cyclosporin didanosine (ddI) buffered tablets or powder medicines for diabetes medicines for inflammation like ibuprofen, naproxen methotrexate multivitamins omeprazole phenytoin probenecid sucralfate theophylline warfarin What if I miss a dose? If you miss a dose, take it as soon as you can. If it is almost time for your next dose, take only that dose. Do not take double or extra doses. Where should I keep my medicine? Keep out of the reach of children. Store at room temperature below 30 degrees C (86 degrees F). Keep container tightly closed. Throw away any unused medicine after the expiration date. What should I tell my health care provider before I take this medicine? They need to know if you have any of these conditions: -bone problems -cerebral disease -joint problems -irregular heartbeat -kidney disease -liver disease -myasthenia gravis -seizure disorder -tendon problems -an unusual or allergic reaction to ciprofloxacin, other antibiotics or medicines, foods, dyes, or preservatives - or trying to get -breast-feeding What should I watch for while using this medicine? Tell your doctor or health day care home provider if your symptoms do not improve. Do not treat diarrhea with over the counter products. Contact your doctor if you have diarrhea that lasts more than 2 days or if it is severe and watery. You may get drowsy or dizzy. Do not drive, use machinery, or do anything that needs mental alertness until you know how this medicine affects you. Do not stand or sit up quickly, especially if you are an older patient. This reduces the risk of dizzy or fainting spells. This medicine can make you more sensitive to the sun. Keep out of the sun. If you cannot avoid being in the sun, wear protective clothing and use sunscreen. Do not use sun lamps or tanning beds/booths. Avoid antacids, aluminum, calcium, iron, magnesium, and zinc products for 6 hours before and 2 hours after taking a dose of this medicine. Metronidazole Oral tablet What is this medicine? METRONIDAZOLE (me junge NI da zole) is an antiinfective. It is used to treat certain kinds of bacterial and protozoal infections. It will not work for colds, flu, or other viral infections. How should I use this medicine? Take this medicine by mouth with a full glass of water. Follow the directions on the prescription label. Take your medicine at regular intervals. Do not take your medicine more often than directed. Take all of your medicine as directed even if you think you are better. Do not skip doses or stop your medicine early. Talk to your director of retail marketing regarding the use of this medicine in children. Special care may be needed. What side effects may I notice from receiving this medicine? Side effects that you should report to your doctor or health day care home provider as soon as possible: allergic reactions like skin rash or hives, swelling of the face, lips, or tongue confusion, clumsiness difficulty speaking discolored or sore mouth dizziness fever, infection numbness, tingling, pain or weakness in the hands or feet trouble passing urine or change in the amount of urine redness, blistering, peeling or loosening of the skin, including inside the mouth seizures unusually weak or tired vaginal irritation, dryness, or discharge Side effects that usually do not require medical attention (report to your doctor or health day care home provider if they continue or are bothersome): diarrhea headache irritability metallic taste nausea stomach pain or cramps trouble sleeping What may interact with this medicine? Do not take this medicine with any of the following medications: alcohol or any product that contains alcohol amprenavir oral solution cisapride disulfiram dofetilide dronedarone paclitaxel injection pimozide ritonavir oral solution sertraline oral solution sulfamethoxazole-trimethoprim injection thioridazine ziprasidone This medicine may also interact with the following medications: cimetidine lithium other medicines that prolong the QT interval (cause an abnormal heart rhythm) phenobarbital phenytoin warfarin What if I miss a dose? If you miss a dose, take it as soon as you can. If it is almost time for your next dose, take only that dose. Do not take double or extra doses. Where should I keep my medicine? Keep out of the reach of children. Store at room temperature below 25 degrees C (77 degrees F). Protect from light. Keep container tightly closed. Throw away any unused medicine after the expiration date. What should I tell my health care provider before I take this medicine? They need to know if you have any of these conditions: anemia or other blood disorders disease of the nervous system fungal or yeast infection if you drink alcohol containing drinks liver disease seizures an unusual or allergic reaction to metronidazole, or other medicines, foods, dyes, or preservatives or trying to get breast-feeding What should I watch for while using this medicine? Tell your doctor or health day care home provider if your symptoms do not improve or if they get worse. You may get drowsy or dizzy. Do not drive, use machinery, or do anything that needs mental alertness until you know how this medicine affects you. Do not stand or sit up quickly, especially if you are an older patient. This reduces the risk of dizzy or fainting spells. Avoid alcoholic drinks while you are taking this medicine and for three days afterward. Alcohol may make you feel dizzy, sick, or flushed. If you are being treated for a sexually transmitted disease, avoid sexual contact until you have finished your treatment. Your sexual partner may also need treatment. You have been given the following additional information: Constipation (Adult) Diverticulitis Hypertension, Established Hydrocodone Bitartrate, Acetaminophen Oral tablet Ciprofloxacin Hydrochloride Oral tablet Metronidazole Oral tablet (Electronically signed by Deepak Gates DO 02/13/2017 11:19)
--- NOTE | 2017-02-13 11:20 | ED MAR SUMMARY ---
..... Medication Administration Record [facility] [address] [place] [address] Patient: VESNA KRUSE Visit ID: [id number] 61y, F Weight: 73.0 kg Height/Length: 62 in BMI: 29.5 ALLERGIES: IV Contrast Start 08:28 02/13/2017 Shalonda Nunez R.N., Stop 10:03 02/13/2017 Shalonda Nunez R.N. Medication Administered: IV NS (SALINE), Dose: IV Fluids over 30 minute(s), Rate: 999 mL/hr, Dispensed: 1000 mL bag, Site: #1 left hand. Medication Ordered: IV NS : initial bolus 500 mL (1000 mL/hr), then 500 mL/hr for X1 (NOW). Given 08:02/13/2017 Shalonda Nunez R.N. Medication Administered: ZOFRAN [IVP] (ONDANSETRON HCL), Dose: 4 mg IVP over 1 minute(s), Site: #1 left hand. Medication Ordered: Zofran IV 4 mg (NOW). Given 08:46 02/13/2017 Shalonda Nunez R.N. Medication Administered: DILAUDID [IVP] (HYDROMORPHONE HCL PF), Dose: 1 mg IVP over 1 minute(s), Site: #1 left hand. Medication Ordered: Dilaudid IV 1 mg (HIGH ALERT MEDICATION, NOW). Given 09:02/13/2017 Shalonda Nunez R.N. Medication Administered: LEVOFLOXACIN [PO], Dose: 750 mg PO. Medication Ordered: Levofloxacin PO 750 mg (NOW). Given 02/13/2017 Shalonda Nunez R.N. Medication Administered: FLAGYL [PO] (METRONIDAZOLE), Dose: 1000 mg PO. Medication Ordered: Flagyl PO 1000 mg (NOW).
== END 2017-02-13 10:05 | disposition home or self-care (01) ==
LOC: ED SRH 07:26
DX: K57.92 Diverticulitis of intestine, part unspecified, without perforation or abscess without bleeding (principal); K59.00 Constipation, unspecified; I10 Essential (primary) hypertension; J44.9 Chronic obstructive pulmonary disease, unspecified; K21.9 Gastro-esophageal reflux disease without esophagitis; Z79.899 Other long term (current) drug therapy; Z87.891 Personal history of nicotine dependence; Z91.041 Radiographic dye allergy status
CPT/HCPCS: 90004; 90074; 90100; 90616; 91320; 92031; 92235; 92530; 92610; 92720; 94060; 95059

== ENCOUNTER 2017-04-13 12:53 | Emergency (ER) | payer OTHER ==
--- NOTE | 2017-04-13 14:01 | ED NURSING NOTES ---
Clinical Report - Nurses [facility] [address] [place] [address] 04/13/2017 12:53 [id number] TRI[facility] Triage time 13:03. Acuity: LEVEL 4. Chief Complaint: SKIN RASH. Alert. No acute distress. KEITH COMA SCORE: [place] Coma Scale: 15- eyes open spontaneously (4); best verbal response- oriented x 4 (5); best motor response- obeys commands (6). --13:08 Sierra Bettencourt R.N. 13:03 04/13/17. BP: 149/69. HR: 58. RR: 18. O2 saturation: 98% on room air. Temp: 97.4 F (oral). Pain level now: 04/18. --13:08 Sierra Bettencourt R.N. Weight: 75.2 kg stated. Height/Length: 62 inches Per Patient. BMI: 30.4. --13:05 Sierra Bettencourt R.N. Medications Cyclobenzaprine HCl Oral 10 mg, 2x a day. Metoprolol Tartrate Oral 100 mg, bid. ProAir HFA Inhalation, 2x a day. Simvastatin Oral (Tablet 10 mg), daily. TraMADol HCl Oral 50 mg, 4x a day. Tylenol PM Extra Strength Oral (Tablet 500-25 mg) 2 tablets, hs. --13:34 Savannah Joseph R.N. HydrOXYzine HCl Oral (Tablet 50 mg), daily. --13:34 Savannah Joseph R.N. Daily Vitamin Oral. --13:35 Savannah Joseph R.N. [place] XL 300 mg 3 times daily. --13:35 Savannah Joseph R.N. Spiriva HandiHaler Inhalation. --13:35 Savannah Joseph R.N. Allergies IV Contrast. --13:04 Sierra Bettencourt R.N. History Arrived by private vehicle. Historian: patient. Accompanied by family. Primary physician (Jose A). Reported as located on the face. This started today. ( states she started taking her daily meds and then noted her face to be getting red, stopped at the fire station). SOCIAL HX: Former smoker. No alcohol use or drug use. FALL RISK ASSESSMENT: Fall risk assessment completed. No fall risk identified. FUNCTIONAL ASSESSMENT: Functional assessment: no impairments noted. LEARNING NEEDS ASSESSMENT: The learning needs assessment revealed no barriers. --13:08 Sierra Bettencourt R.N. PROBLEMS: Upper Extremity Pain. Hepatitis. UTI - Urinary Tract Infection. Hypertension. Drug Poisoning. Constipation. Allergic Reaction. Gastroenteritis. Muscle Strain, Lower Extremity. Cervical Strain. Colitis. Dental Caries. Dental Abscess. Dental Pain. Atypical Chest Pain. Pleurisy. Bronchitis. Pyelonephritis. COPD - Chronic Obstructive Pulmonary Disease. Urinary Calculi. Nephropathy. Peptic Ulcer Disease. Heart Disease. Lung Disease. LNMP - Last Normal Menstrual Period. Gastroesophageal Reflux Disease. Diverticulitis. Valvular Heart Disease. Chest Wall Pain. Chest Pain. Abdominal Pain. Vomiting. Diarrhea. Immunizations. --13:05 Sierra Bettencourt R.N. Chest Pain of GI Origin [RuleOut]. Diverticulitis [RuleOut]. --13:05 Sierra Bettencourt R.N. ADDITIONAL SURGERIES: Ablation. Back pain stimulator implanted 07-24. Cholecystectomy. Colectomy. Hernia Repair. Valve Replacement. --13:05 Sierra Bettencourt R.N. Assessment GENERAL / NEURO / PSYCH: Alert. Oriented X 4. Appears in no acute distress. Patient appears calm and cooperative. RESPIRATORY: Respirations not labored. SKIN: Skin is warm and dry. --13:08 Sierra Bettencourt R.N. Interventions ID and allergy band on patient. To treatment room. --13:08 Sierra Bettencourt R.N. PHYSICAL ASSESSMENT 13:14 04/13/17. Ambulatory to room. GENERAL / NEURO / PSYCH: Alert. The patient does not appear to be in acute distress. Oriented X 4. HEENT: ( cheeks pink). RESPIRATORY: Respirations not labored. SKIN: Skin is warm and dry. --13:14 Sierra Bettencourt R.N. NURSING PROGRESS NOTES 13:14 04/13/17. Patient gowned. Head of bed elevated. Call light placed in reach. Side rails up x 1. Bed placed in lowest position. Brakes of bed on. --13:14 Sierra Bettencourt R.N. 13:29 04/13/2017 Benadryl (DiphenhydrAMINE HCl) PO 50 mg given. Allergies verified, confirmed 5 rights and sedative warning given to the patient. --13:29 Savannah Joseph R.N. 13:29 04/13/2017 Pepcid (Famotidine) PO 40 mg given. Allergies verified and confirmed 5 rights. --13:29 Savannah Joseph R.N. DISPOSITION / DISCHARGE 14:04/13/17. Condition at departure: improved. The goals identified in the patient's plan of care were met. No learning barriers present. Discharge instructions provided and reviewed with the patient and spouse. Reviewed warnings. Reviewed medication(s). Treatments reviewed. Patient and spouse verbalized understanding. Written instructions provided in Sierra Leonean. The patient was discharged by the physician specimen preparation assistant. She was discharged home and accompanied by family. She left the Emergency Department ambulatory and via private vehicle. Family member driving. FALL RISK ASSESSMENT: Fall risk assessment completed. No fall risk identified. --14:05 Orville Titus R.N. 14:04 04/13/17. BP: 143/78. HR: 72. RR: 16. O2 saturation: 98% on room air. Temp: 98.2 F (oral). --14:05 Orville Titus R.N. 14:05 04/13/17. Departure time: 14:Apr 13 2017. --14:05 Orville Titus R.N. Locked/Released at 04/13/2017 14:11 by Orville Titus R.N.
--- NOTE | 2017-04-13 14:01 | ED ORDER SUMMARY ---
..... Patient: VESNA KRUSE OrderSheet VisitID: [id number] [address] [place] [address] 61y, F Registration Date/Time: 04/13/2017 ORDER SHEET Weight: 75.2 kg (stated) Allergies: IV Contrast GENERAL ORDERS: MEDICATION ORDERS: Benadryl PO 50 mg (NOW) (13:16 04/13/2017 EKorolejasmyn P.A.-C) (Ack 13:24 KPage-Kuchan R.N.) (13:29 KPage-Kuchan R.N.) Pepcid PO 40 mg (NOW) (13:16 04/13/2017 EKlatoshaleva P.A.-C) (Ack 13:24 KPage-Kuchan R.N.) (13:29 KPage-Kuchan R.N.) IV FLUIDS: ORDER SHEET NOTES: [Electronically signed by Orville Titus R.N. (14:11 04/13/2017)] [Electronically signed by Talisha Lozada.A.-C (14:22 04/13/2017)] [Electronically locked/signed by Orville Titus R.N. (14:04/13/2017)]
--- NOTE | 2017-04-13 14:01 | ED NURSING NOTES ---
Clinical Report - Nurses [facility] [address] [place] [address] 04/13/2017 12:53 [id number] TRI[facility] Triage time 13:03. Acuity: LEVEL 4. Chief Complaint: SKIN RASH. Alert. No acute distress. KEITH COMA SCORE: [place] Coma Scale: 15- eyes open spontaneously (4); best verbal response- oriented x 4 (5); best motor response- obeys commands (6). --13:08 Sierra Bettencourt R.N. 13:03 04/13/17. BP: 149/69. HR: 58. RR: 18. O2 saturation: 98% on room air. Temp: 97.4 F (oral). Pain level now: 04/18. --13:08 Sierra Bettencourt R.N. Weight: 75.2 kg stated. Height/Length: 62 inches Per Patient. BMI: 30.4. --13:05 Sierra Bettencourt R.N. Medications Cyclobenzaprine HCl Oral 10 mg, 2x a day. Metoprolol Tartrate Oral 100 mg, bid. ProAir HFA Inhalation, 2x a day. Simvastatin Oral (Tablet 10 mg), daily. TraMADol HCl Oral 50 mg, 4x a day. Tylenol PM Extra Strength Oral (Tablet 500-25 mg) 2 tablets, hs. --13:34 Savannah Joseph R.N. HydrOXYzine HCl Oral (Tablet 50 mg), daily. --13:34 Savannah Joseph R.N. Daily Vitamin Oral. --13:35 Savannah Joseph R.N. [place] XL 300 mg 3 times daily. --13:35 Savannah Joseph R.N. Spiriva HandiHaler Inhalation. --13:35 Savannah Joseph R.N. Allergies IV Contrast. --13:04 Sierra Bettencourt R.N. History Arrived by private vehicle. Historian: patient. Accompanied by family. Primary physician (Jose A). Reported as located on the face. This started today. ( states she started taking her daily meds and then noted her face to be getting red, stopped at the fire station). SOCIAL HX: Former smoker. No alcohol use or drug use. FALL RISK ASSESSMENT: Fall risk assessment completed. No fall risk identified. FUNCTIONAL ASSESSMENT: Functional assessment: no impairments noted. LEARNING NEEDS ASSESSMENT: The learning needs assessment revealed no barriers. --13:08 Sierra Bettencourt R.N. PROBLEMS: Upper Extremity Pain. Hepatitis. UTI - Urinary Tract Infection. Hypertension. Drug Poisoning. Constipation. Allergic Reaction. Gastroenteritis. Muscle Strain, Lower Extremity. Cervical Strain. Colitis. Dental Caries. Dental Abscess. Dental Pain. Atypical Chest Pain. Pleurisy. Bronchitis. Pyelonephritis. COPD - Chronic Obstructive Pulmonary Disease. Urinary Calculi. Nephropathy. Peptic Ulcer Disease. Heart Disease. Lung Disease. LNMP - Last Normal Menstrual Period. Gastroesophageal Reflux Disease. Diverticulitis. Valvular Heart Disease. Chest Wall Pain. Chest Pain. Abdominal Pain. Vomiting. Diarrhea. Immunizations. --13:05 Sierra Bettencourt R.N. Chest Pain of GI Origin [RuleOut]. Diverticulitis [RuleOut]. --13:05 Sierra Bettencourt R.N. ADDITIONAL SURGERIES: Ablation. Back pain stimulator implanted 07-24. Cholecystectomy. Colectomy. Hernia Repair. Valve Replacement. --13:05 Sierra Bettencourt R.N. Assessment GENERAL / NEURO / PSYCH: Alert. Oriented X 4. Appears in no acute distress. Patient appears calm and cooperative. RESPIRATORY: Respirations not labored. SKIN: Skin is warm and dry. --13:08 Sierra Bettencourt R.N. Interventions ID and allergy band on patient. To treatment room. --13:08 Sierra Bettencourt R.N. PHYSICAL ASSESSMENT 13:14 04/13/17. Ambulatory to room. GENERAL / NEURO / PSYCH: Alert. The patient does not appear to be in acute distress. Oriented X 4. HEENT: ( cheeks pink). RESPIRATORY: Respirations not labored. SKIN: Skin is warm and dry. --13:14 Sierra Bettencourt R.N. NURSING PROGRESS NOTES 13:14 04/13/17. Patient gowned. Head of bed elevated. Call light placed in reach. Side rails up x 1. Bed placed in lowest position. Brakes of bed on. --13:14 Sierra Bettencourt R.N. 13:29 04/13/2017 Benadryl (DiphenhydrAMINE HCl) PO 50 mg given. Allergies verified, confirmed 5 rights and sedative warning given to the patient. --13:29 Savannah Joseph R.N. 13:29 04/13/2017 Pepcid (Famotidine) PO 40 mg given. Allergies verified and confirmed 5 rights. --13:29 Savannah Joseph R.N. DISPOSITION / DISCHARGE 14:04/13/17. Condition at departure: improved. The goals identified in the patient's plan of care were met. No learning barriers present. Discharge instructions provided and reviewed with the patient and spouse. Reviewed warnings. Reviewed medication(s). Treatments reviewed. Patient and spouse verbalized understanding. Written instructions provided in Malagasy. The patient was discharged by the physician sales assistant entertainment and media. She was discharged home and accompanied by family. She left the Emergency Department ambulatory and via private vehicle. Family member driving. FALL RISK ASSESSMENT: Fall risk assessment completed. No fall risk identified. --14:05 Orville Titus R.N. 14:04 04/13/17. BP: 143/78. HR: 72. RR: 16. O2 saturation: 98% on room air. Temp: 98.2 F (oral). --14:05 Orville Titus R.N. 14:05 04/13/17. Departure time: 14:Apr 13 2017. --14:05 Orville Titus R.N. Locked/Released at 04/13/2017 14:11 by Orville Titus R.N.
--- NOTE | 2017-04-13 14:01 | ED CLINICAL REPORT ---
Clinical Report - Physicians/Mid Levels [facility] [address] [place] [address] 04/13/2017 12:53 Patient: VESNA KRUSE Time Seen: 13:18 Apr 13 2017. Arrived- By private vehicle. Historian- patient. HISTORY OF PRESENT ILLNESS Chief Complaint: ALLERGIC REACTION and SKIN RASH. This started just prior to arrival and is still present. The patient has had a skin rash. A possible cause has been identified (omega xl). No recent medication. (Patient here in the emergency department has a pink rash or reports is new to her, no shortness of breath, no difficulty with breathing.). REVIEW OF SYSTEMS No sore throat, cough, fever, joint pain or headache. No abdominal pain. All systems otherwise negative, except as recorded above. PAST HISTORY Problems: Upper Extremity Pain. Hepatitis. UTI - Urinary Tract Infection. Hypertension. Drug Poisoning. Constipation. Allergic Reaction. Gastroenteritis. Muscle Strain, Lower Extremity. Cervical Strain. Colitis. Dental Caries. Dental Abscess. Dental Pain. Atypical Chest Pain. Pleurisy. Bronchitis. Pyelonephritis. COPD - Chronic Obstructive Pulmonary Disease. Urinary Calculi. Nephropathy. Peptic Ulcer Disease. Heart Disease. Lung Disease. LNMP - Last Normal Menstrual Period. Gastroesophageal Reflux Disease. Diverticulitis. Valvular Heart Disease. Chest Wall Pain. Chest Pain. Abdominal Pain. Vomiting. Diarrhea. Immunizations. Additional Surgeries: Ablation. Back pain stimulator implanted 07-24. Cholecystectomy. Colectomy. Hernia Repair. Valve Replacement. Allergies: IV Contrast. SOCIAL HISTORY Former smoker. No alcohol use or drug use. ADDITIONAL NOTES The nursing notes have been reviewed. PHYSICAL EXAM Vital Signs: 04/13/2017 13:03 BP: 149/69. HR: 58. RR: 18. O2 saturation: 98%. Temp: 97.4 F. Pain level now: 7/10. Appearance: Alert. Head and Neck: Normal external inspection. ENT: Pharynx normal. Voice normal. Neck: Neck supple. CVS: Normal heart rate and rhythm. Heart sounds normal. Respiratory: No respiratory distress. Breath sounds normal. Skin: Skin rash (minimal pink erythema of face, no warmth/ no swelling). Neuro: Oriented X 3. PROGRESS AND PROCEDURES Course of Care: Patient given Benadryl and Pepcid, and her symptoms improved. The only new medication she has been on may go. She'll consider decreasing her dose, and following up with her primary care provider. No other recent exposures. Lungs clear. No other systemic symptoms. Patient is stable. Symptoms better. Patient/family counseled. Disposition: Discharged. CLINICAL IMPRESSION Localized allergic reaction. INSTRUCTIONS (as we discussed consider decreasing your dose of [place], or discontinuing it or taking benadryl and following up with your PCP). (Electronically signed by Talisha Lozada P.A.-C 04/13/2017 14:22)
--- NOTE | 2017-04-13 14:01 | ED CLINICAL REPORT ---
Clinical Report - Physicians/Mid Levels [facility] [address] [place] [address] 04/13/2017 12:53 Patient: VESNA KRUSE Time Seen: 13:18 Apr 13 2017. Arrived- By private vehicle. Historian- patient. HISTORY OF PRESENT ILLNESS Chief Complaint: ALLERGIC REACTION and SKIN RASH. This started just prior to arrival and is still present. The patient has had a skin rash. A possible cause has been identified (omega xl). No recent medication. (Patient here in the emergency department has a pink rash or reports is new to her, no shortness of breath, no difficulty with breathing.). REVIEW OF SYSTEMS No sore throat, cough, fever, joint pain or headache. No abdominal pain. All systems otherwise negative, except as recorded above. PAST HISTORY Problems: Upper Extremity Pain. Hepatitis. UTI - Urinary Tract Infection. Hypertension. Drug Poisoning. Constipation. Allergic Reaction. Gastroenteritis. Muscle Strain, Lower Extremity. Cervical Strain. Colitis. Dental Caries. Dental Abscess. Dental Pain. Atypical Chest Pain. Pleurisy. Bronchitis. Pyelonephritis. COPD - Chronic Obstructive Pulmonary Disease. Urinary Calculi. Nephropathy. Peptic Ulcer Disease. Heart Disease. Lung Disease. LNMP - Last Normal Menstrual Period. Gastroesophageal Reflux Disease. Diverticulitis. Valvular Heart Disease. Chest Wall Pain. Chest Pain. Abdominal Pain. Vomiting. Diarrhea. Immunizations. Additional Surgeries: Ablation. Back pain stimulator implanted 07-24. Cholecystectomy. Colectomy. Hernia Repair. Valve Replacement. Allergies: IV Contrast. SOCIAL HISTORY Former smoker. No alcohol use or drug use. ADDITIONAL NOTES The nursing notes have been reviewed. PHYSICAL EXAM Vital Signs: 04/13/2017 13:03 BP: 149/69. HR: 58. RR: 18. O2 saturation: 98%. Temp: 97.4 F. Pain level now: 7/10. Appearance: Alert. Head and Neck: Normal external inspection. ENT: Pharynx normal. Voice normal. Neck: Neck supple. CVS: Normal heart rate and rhythm. Heart sounds normal. Respiratory: No respiratory distress. Breath sounds normal. Skin: Skin rash (minimal pink erythema of face, no warmth/ no swelling). Neuro: Oriented X 3. PROGRESS AND PROCEDURES Course of Care: Patient given Benadryl and Pepcid, and her symptoms improved. The only new medication she has been on may go. She'll consider decreasing her dose, and following up with her primary care provider. No other recent exposures. Lungs clear. No other systemic symptoms. Patient is stable. Symptoms better. Patient/family counseled. Disposition: Discharged. CLINICAL IMPRESSION Localized allergic reaction. INSTRUCTIONS (as we discussed consider decreasing your dose of [place], or discontinuing it or taking benadryl and following up with your PCP). (Electronically signed by Talisha Lozada P.A.-C 04/13/2017 14:22)
--- NOTE | 2017-04-13 14:01 | ED ORDER SUMMARY ---
..... Patient: VESNA KRUSE [facility] VisitID: [id number] [address] [place] [address] 61y, F Registration Date/Time: 04/13/2017 ORDER SHEET Weight: 75.2 kg (stated) Allergies: IV Contrast GENERAL ORDERS: MEDICATION ORDERS: Benadryl PO 50 mg (NOW) (13:16 04/13/2017 EKorolejasmyn P.A.-C) (Ack 13:24 KPage-Kuchan R.N.) (13:29 KPage-Kuchan R.N.) Pepcid PO 40 mg (NOW) (13:16 04/13/2017 EKlatoshaleva P.A.-C) (Ack 13:24 KPage-Kuchan R.N.) (13:29 KPage-Kuchan R.N.) IV FLUIDS: ORDER SHEET NOTES: [Electronically signed by Orville Titus R.N. (14:11 04/13/2017)] [Electronically signed by Talisha Lozada.A.-C (14:22 04/13/2017)] [Electronically locked/signed by Orville Titus R.N. (14:04/13/2017)]
--- NOTE | 2017-04-13 14:23 | ED MED RECONCILIATION SUMMARY ---
Patient: VESNA KRUSE Medication Reconciliation Report [facility] VisitID: [id number] [address] [place] [address] 61y, F Registration Date/Time: 04/13/2017 Weight: 75.2 kg Height/Length: 62 in. BMI: 30.4 ALLERGIES: IV Contrast The patient's Home Medications are listed below: THE FOLLOWING MEDICATIONS NEED TO BE RECONCILED: Cyclobenzaprine HCl Oral 10 mg, 2x a day Daily Vitamin Oral HydrOXYzine HCl Oral (50 mg), daily Metoprolol Tartrate Oral 100 mg, bid [place] XL 300 mg 3 times daily ProAir HFA Inhalation, 2x a day Simvastatin Oral (10 mg), daily Spiriva HandiHaler Inhalation TraMADol HCl Oral 50 mg, 4x a day Tylenol PM Extra Strength Oral (500-25 mg) 2 tablets, hs The source(s) of the original Home Medication information: Not obtained. The following Medications were given to the patient in the Emergency Department: Benadryl [PO] PO 50 mg, administered: 04/13/2017 1:29:00 PM Pepcid [PO] PO 40 mg, administered: 04/13/2017 1:29:00 PM The following Medications were prescribed to the patient: None.
--- NOTE | 2017-04-13 14:23 | ED MED RECONCILIATION SUMMARY ---
Patient: VESNA KRUSE Medication Reconciliation Report [facility] VisitID: [id number] [address] [place] [address] 61y, F Registration Date/Time: 04/13/2017 Weight: 75.2 kg Height/Length: 62 in. BMI: 30.4 ALLERGIES: IV Contrast The patient's Home Medications are listed below: THE FOLLOWING MEDICATIONS NEED TO BE RECONCILED: Cyclobenzaprine HCl Oral 10 mg, 2x a day Daily Vitamin Oral HydrOXYzine HCl Oral (50 mg), daily Metoprolol Tartrate Oral 100 mg, bid [place] XL 300 mg 3 times daily ProAir HFA Inhalation, 2x a day Simvastatin Oral (10 mg), daily Spiriva HandiHaler Inhalation TraMADol HCl Oral 50 mg, 4x a day Tylenol PM Extra Strength Oral (500-25 mg) 2 tablets, hs The source(s) of the original Home Medication information: Not obtained. The following Medications were given to the patient in the Emergency Department: Benadryl [PO] PO 50 mg, administered: 04/13/2017 1:29:00 PM Pepcid [PO] PO 40 mg, administered: 04/13/2017 1:29:00 PM The following Medications were prescribed to the patient: None.
--- NOTE | 2017-04-13 14:23 | ED MAR SUMMARY ---
..... Medication Administration Record [facility] [address] [place] [address] Patient: VESNA KRUSE Visit ID: [id number] 61y, F Weight: 75.2 kg Height/Length: 62 in BMI: 30.4 ALLERGIES: IV Contrast Given 13:04/13/2017 Savannah Joseph, RRoldanNRoldan Medication Administered: BENADRYL [PO] (DIPHENHYDRAMINE HCL), Dose: 50 mg PO. Medication Ordered: Benadryl PO 50 mg (NOW). Given 13:04/13/2017 Savannah Joseph, RRoldanNRoldan Medication Administered: PEPCID [PO] (FAMOTIDINE), Dose: 40 mg PO. Medication Ordered: Pepcid PO 40 mg (NOW).
--- NOTE | 2017-04-13 14:23 | ED DISCHARGE INSTRUCTIONS ---
Patient: VESNA KRUSE General Instructions [facility] VisitID: [id number] [place] [address] 61y, F Registration Date/Time: 04/13/2017 Localized allergic reaction. INSTRUCTIONS (as we discussed consider decreasing your dose of [place], or discontinuing it or taking benadryl and following up with your PCP). ADDITIONAL INFORMATION Allergic Reaction,Generalized [Other] You are having an allergic reaction. This may cause an itchy rash, dizziness, fainting, trouble breathing or swallowing, and swelling of the face or other parts of the body. This can be caused by exposure to something in your surroundings that you have become sensitive to. This could be due to medicine or food. This could also be due to something you put on your skin or in your hair or something in the air. Often it is not possible to find out exactly what has caused your reaction. The goal of today's treatment is to relieve symptoms. The rash will usually fade over several days, but can sometimes last up to two weeks. Home Care: 1) If you know what you are allergic to, avoid it because future reactions could be worse than this one. 2) Avoid tight clothing and anything that heats up your skin (hot showers/baths, direct sunlight) since heat will make itching worse. 3) An ice pack will relieve local areas of intense itching and redness. Lanacaine cream or Solarcaine spray (or other product containing "benzocaine", available without a prescription) will reduce the itching. 4) Oral Benadryl (diphenhydramine) is an antihistamine available at drug and grocery stores. Unless a prescription antihistamine was given, Benadryl may be used to reduce itching if large areas of the skin are involved. Use lower doses during the daytime and higher doses at bedtime since the drug may make you sleepy. [NOTE: Do not use Benadryl if you have glaucoma or if you are a man with trouble urinating due to an enlarged prostate.] Claritin (loratidine) is an antihistamine that causes less drowsiness and is a good alternative for daytime use. Follow Up Follow Up with your doctor or this facility in two days if your symptoms do not continue to improve. If you had a severe reaction today, or if you have had several mild-moderate allergic reactions in the past, ask your doctor about allergy testing to find out what you are allergic to. If your reaction included dizziness, fainting or trouble breathing or swallowing, ask your doctor about carrying an Allergy Kit (injectable epinephrine) for home use. Get Prompt Medical Attention if any of the following occur: -- Trouble breathing or swallowing -- New or worse swelling in the face, eyelids, lips, mouth, tongue or throat -- Dizziness, weakness or fainting You have been given the following additional information: Allergic Reaction, Other (General) (Electronically signed by Talisha Lozada P.A.-C 04/13/2017 14:22)
--- NOTE | 2017-04-13 14:23 | ED MAR SUMMARY ---
..... Medication Administration Record [facility] [address] [place] [address] Patient: VESNA KRUSE Visit ID: [id number] 61y, F Weight: 75.2 kg Height/Length: 62 in BMI: 30.4 ALLERGIES: IV Contrast Given 13:04/13/2017 Savannah Joseph, RRoldanNRoldan Medication Administered: BENADRYL [PO] (DIPHENHYDRAMINE HCL), Dose: 50 mg PO. Medication Ordered: Benadryl PO 50 mg (NOW). Given 13:04/13/2017 Savannah Joseph, RRoldanNRoldan Medication Administered: PEPCID [PO] (FAMOTIDINE), Dose: 40 mg PO. Medication Ordered: Pepcid PO 40 mg (NOW).
== END 2017-04-13 14:05 | disposition home or self-care (01) ==
LOC: ED SRH 12:53
DX: L23.9 Allergic contact dermatitis, unspecified cause (principal); J44.9 Chronic obstructive pulmonary disease, unspecified; I10 Essential (primary) hypertension; I51.9 Heart disease, unspecified; Z91.041 Radiographic dye allergy status

== ENCOUNTER 2017-04-27 15:06 | Emergency (ER) | payer OTHER ==
--- NOTE | 2017-04-27 18:20 | DIAGNOSTIC IMAGING REPORT ---
PROCEDURE: US VENOUS - RIGHT EXT INDICATION: PAIN TECHNIQUE: Duplex sonography of the deep venous system in the right lower extremity was performed. Compression and augmentation techniques were used. COMPARISON: 03/22/2015 FINDINGS: Each interrogated segment of deep vein from the common femoral vein into the calf veins demonstrates normal compressibility, augmentation and/or color Doppler flow without filling defect. No evidence of significant soft-tissue edema, soft-tissue mass or cyst. IMPRESSION: 1. No deep venous thrombosis in the right lower extremity.
--- NOTE | 2017-04-27 19:37 | ED ORDER SUMMARY ---
..... Patient: VESNA KRUSE OrderSheet [facility] VisitID: [id number] [address] [place] [address] 61y, F Registration Date/Time: 04/27/2017 ORDER SHEET Weight: 76.6 kg (stated) Allergies: IV Contrast GENERAL ORDERS: US Venous Right Urgent (17:40 04/27/2017 HBlea A.R.N.P.) (Ack 17:40 LNations ER Tech1) (18:47 [facility]) MEDICATION ORDERS: IV FLUIDS: ORDER SHEET NOTES: [Electronically signed by Addie Gutierrez R.N. (19:52 04/27/2017)] [Electronically signed by Loree ÁlvarezR.N.PRoldan (21:14 04/27/2017)] [Electronically locked/signed by Addie Gutierrez R.N. (19:52 04/27/2017)]
--- NOTE | 2017-04-27 19:37 | ED ORDER SUMMARY ---
..... Patient: VESNA KRUSE OrderSheet [facility] VisitID: [id number] [address] [place] [address] 61y, F Registration Date/Time: 04/27/2017 ORDER SHEET Weight: 76.6 kg (stated) Allergies: IV Contrast GENERAL ORDERS: US Venous Right Urgent (17:40 04/27/2017 HBlea A.R.N.P.) (Ack 17:40 LNations ER Tech1) (18:47 [facility]) MEDICATION ORDERS: IV FLUIDS: ORDER SHEET NOTES: [Electronically signed by Addie Gutierrez R.N. (19:52 04/27/2017)] [Electronically signed by Loree ÁlvarezR.N.PRoldan (21:14 04/27/2017)] [Electronically locked/signed by Addie Gutierrez R.N. (19:52 04/27/2017)]
--- NOTE | 2017-04-27 19:37 | ED NURSING NOTES ---
Clinical Report - Nurses [facility] [address] [place] [address] 04/27/2017 15:06 [id number] TRI[facility] Triage time 15:30. Acuity: LEVEL 4. Chief Complaint: RIGHT LOWER EXTREMITY PAIN. Alert. No acute distress. MARC COMA SCORE: Marc Coma Scale: 15- eyes open spontaneously (4); best verbal response- oriented x 4 (5); best motor response- obeys commands (6). --15:34 Sierra Bettencourt R.N. 15:30 04/27/17. BP: 126/86. HR: 71. RR: 16. O2 saturation: 98% on room air. Temp: 97.8 F (oral). Pain level now: 05/19. --15:34 Sierra Bettencourt R.N. Weight: 76.6 kg stated. Height/Length: 62 inches Per Patient. BMI: 30.9. --15:33 Sierra Bettencourt R.N. Medications Cyclobenzaprine HCl Oral 10 mg, 2x a day. Daily Vitamin Oral. HydrOXYzine HCl Oral (Tablet 50 mg), daily. Metoprolol Tartrate Oral 100 mg, bid. Leola XL 300 mg 3 times daily. ProAir HFA Inhalation, 2x a day. Simvastatin Oral (Tablet 10 mg), daily. Spiriva HandiHaler Inhalation. TraMADol HCl Oral 50 mg, 4x a day. Tylenol PM Extra Strength Oral (Tablet 500-25 mg) 2 tablets, hs. --15:31 Sierra Bettencourt R.N. Medication/allergy information source: other. --15:34 Sierra Bettencourt R.N. Allergies IV Contrast. --15:31 Sierra Bettencourt R.N. History Arrived by private vehicle. Historian: patient. Unaccompanied. Primary physician (Jose A). No injury occurred. This occurred yesterday. ( states she started walking again recently and the pain started in her right thigh yest, can only walk one block now). Treatment DIRECTORY COMPILER: Applied ice and heat. SOCIAL HX: Former smoker. No alcohol use or drug use. FALL RISK ASSESSMENT: Fall risk assessment completed. No fall risk identified. FUNCTIONAL ASSESSMENT: Functional assessment: no impairments noted. LEARNING NEEDS ASSESSMENT: The learning needs assessment revealed no barriers. --15:34 Sierra Bettencourt R.N. PROBLEMS: Upper Extremity Pain. Hepatitis. UTI - Urinary Tract Infection. Hypertension. Drug Poisoning. Constipation. Allergic Reaction. Gastroenteritis. Muscle Strain, Lower Extremity. Cervical Strain. Colitis. Dental Caries. Dental Abscess. Dental Pain. Atypical Chest Pain. Pleurisy. Bronchitis. Pyelonephritis. COPD - Chronic Obstructive Pulmonary Disease. Urinary Calculi. Nephropathy. Peptic Ulcer Disease. Heart Disease. Lung Disease. LNMP - Last Normal Menstrual Period. Gastroesophageal Reflux Disease. Diverticulitis. Valvular Heart Disease. Chest Wall Pain. Chest Pain. Abdominal Pain. Vomiting. Diarrhea. Immunizations. --15:32 Sierra Bettencourt R.N. Chest Pain of GI Origin [RuleOut]. Diverticulitis [RuleOut]. --15:32 Sierra Bettencourt R.N. ADDITIONAL SURGERIES: Ablation. Back pain stimulator implanted 07-24. Cholecystectomy. Colectomy. Hernia Repair. Valve Replacement. --15:32 Sierra Bettencourt R.N. Assessment GENERAL / NEURO / PSYCH: Alert. Oriented X 4. Appears in no acute distress. Patient appears calm and cooperative. RESPIRATORY: Respirations not labored. SKIN: Skin is warm and dry. --15:34 Sierra Bettencourt R.N. Interventions ID and allergy band on patient. To waiting room. --15:34 Sierra Bettencourt R.N. PHYSICAL ASSESSMENT Ambulatory to room. GENERAL / NEURO / PSYCH: Oriented X 4. Alert. Appears in no acute distress. EXTREMITIES: Right leg: tenderness. SKIN: Skin intact. Skin is warm and dry. --17:40 Sheriff Wong R.N. NURSING PROGRESS NOTES Two patient identifiers checked. Call light placed in reach. Side rails up x 2. Bed placed in lowest position. Brakes of bed on. --17:40 Sheriff Wong R.N. DISPOSITION / DISCHARGE Condition at departure: stable. No learning barriers present. Discharge instructions provided and reviewed with the patient. Patient verbalized understanding. Written instructions provided in [place]. The patient was discharged home and accompanied by spouse. She left the Emergency Department ambulatory and via private vehicle. Spouse driving. --19:52 Addie Gutierrez R.N. 19:51 04/27/17. BP: 145/88. HR: 85. RR: 16. O2 saturation: 98% on room air. Temp: deferred. Heart-Boggs pain scale: 4/10. --19:52 Addie Gutierrez R.N. Locked/Released at 04/27/2017 19:52 by Addie Gutierrez R.N.
--- NOTE | 2017-04-27 19:37 | ED CLINICAL REPORT ---
Clinical Report - Physicians/Mid Levels [facility] [address] [place] [address] 04/27/2017 15:06 Patient: VESNA KRUSE Time Seen: 17:35; initial patient contact, initial documentation, patient care assumed. Arrived- By private vehicle. Historian- patient. HISTORY OF PRESENT ILLNESS Chief Complaint: LOWER EXTREMITY PAIN. Severity is described as being moderate. The quality is noted to be "pain". It is described as radiating to the right pelvis. Not relieved by anything- worsened by standing and walking. This started yesterday and is still present. Symptoms located in the area of the right hip and right thigh. The patient has not had redness. No swelling, bladder dysfunction, bowel dysfunction, sensory loss or motor loss. She has had difficulty walking. It has been associated with pain in the right leg. ( was walking around block yesterday, twisted knee, but knee doesn't hurt and it is not swollen, pain is in thigh and hip, concerned about blood clot, her mom had one). Patient notes the possibility of an injury. Mechanism of injury- she fell while walking. Similar symptoms previously: None. Recent medical care: Not recently seen/assessed. REVIEW OF SYSTEMS No chest pain or difficulty breathing. All systems otherwise negative, except as recorded above. PAST HISTORY See nurses notes. ( PROBLEMS: Upper Extremity Pain. Hepatitis. UTI - Urinary Tract Infection. Hypertension. Drug Poisoning. Constipation. Allergic Reaction. Gastroenteritis. Muscle Strain, Lower Extremity. Cervical Strain. Colitis. Dental Caries. Dental Abscess. Dental Pain. Atypical Chest Pain. Pleurisy. Bronchitis. Pyelonephritis. COPD - Chronic Obstructive Pulmonary Disease. Urinary Calculi. Nephropathy. Peptic Ulcer Disease. Heart Disease. Lung Disease. LNMP - Last Normal Menstrual Period. Gastroesophageal Reflux Disease. Diverticulitis. Valvular Heart Disease. Chest Wall Pain. Chest Pain. Abdominal Pain. Vomiting. Diarrhea. Immunizations. --15:32 Sierra Bettencourt R.N. Chest Pain of GI Origin [RuleOut]. Diverticulitis [RuleOut]. --15:32 Sierra Bettencourt R.N. ADDITIONAL SURGERIES: Ablation. Back pain stimulator implanted 07-24. Cholecystectomy. Colectomy. Hernia Repair. Valve Replacement. --15:32 Sierra Bettencourt R.N.). SOCIAL HISTORY Former smoker. No alcohol use or drug use. No recent travel. Is a local resident. FAMILY HISTORY mom had blood clot. ADDITIONAL NOTES The nursing notes have been reviewed with agreement regarding the chief complaint, HPI, ROS, PMH and patient medications and allergies. PHYSICAL EXAM Vital Signs: 04/27/2017 15:30 BP: 126/86. HR: 71. RR: 16. O2 saturation: 98%. Temp: 97.8 F. Pain level now: 05/19. Have been reviewed as normal and appear to be correct. Appearance: Alert. Oriented X3. No acute distress. Eyes: Pupils equal, round and reactive to light. Eyes normal inspection. Neck: Normal inspection. Neck supple. CVS: Normal heart rate and rhythm. Heart sounds normal. Respiratory: No respiratory distress. Breath sounds normal. Back: Normal inspection. No tenderness. ROM normal. Skin: Skin intact. Skin warm and dry. Normal skin color. Normal skin turgor. Extremities: Right thigh: moderate tenderness located in the medial aspect of mid thigh. Neurovascular intact distally. No erythema, swelling, laceration, abrasion or ecchymosis. No puncture wound, foreign body or deformity. Lower extremities exhibit normal ROM. No lower extremity edema. Extremities otherwise negative. Gait: Abnormal gait. Gait not tested due to pain. Neuro: Oriented X 3. No motor deficit. No sensory deficit. LABS, X-RAYS, AND EKG Lower Extremity Sonography: Negative study. PROGRESS AND PROCEDURES Course of Care: 17:41 04/27/17. pt has [facility] for consistent tramadol rx every month, #120, last rx 04/06 and #10 er visits, see report for full details. Patient counseled in person regarding the patient's stable condition, test results and diagnosis. 0. Differential Diagnosis: I considered fracture, stress fracture, rheumatoid arthritis, sprain, myositis, fasciitis, tendonitis, bursitis and deep venous thrombosis as a possible cause of lower extremity pain in this patient. This is a partial list of diagnoses considered. Above considerations are based on history, physical exam, reassessment and other information. Differential diagnosis was discussed with patient. Disposition: Discharged home in good and unchanged condition (19:37). Condition: good and stable. CLINICAL IMPRESSION Acute right thigh pain. INSTRUCTIONS Warnings: GENERAL WARNINGS: Return or contact your physician immediately if your condition worsens or changes unexpectedly, if not improving as expected, or if other problems arise. Specifically return if problem worsens. Follow-up: Follow up with your doctor in about three days even if well. Call for an appointment. Summary of care provided to patient. Understanding of the discharge instructions verbalized by patient. (Electronically signed by Loree Álvarez A.R.N.P. 04/27/2017 21:14)
--- NOTE | 2017-04-27 19:37 | ED NURSING NOTES ---
Clinical Report - Nurses Located [facility] [address] [place] [address] 04/27/2017 15:06 [id number] Triage time 15:30. Acuity: LEVEL 4. Chief Complaint: RIGHT LOWER EXTREMITY PAIN. Alert. No acute distress. MARC COMA SCORE: Marc Coma Scale: 15- eyes open spontaneously (4); best verbal response- oriented x 4 (5); best motor response- obeys commands (6). --15:34 Sierra Bettencourt R.N. 15:30 04/27/17. BP: 126/86. HR: 71. RR: 16. O2 saturation: 98% on room air. Temp: 97.8 F (oral). Pain level now: 05/19. --15:34 Sierra Bettencourt R.N. Weight: 76.6 kg stated. Height/Length: 62 inches Per Patient. BMI: 30.9. --15:33 Sierra Bettencourt R.N. Medications Cyclobenzaprine HCl Oral 10 mg, 2x a day. Daily Vitamin Oral. HydrOXYzine HCl Oral (Tablet 50 mg), daily. Metoprolol Tartrate Oral 100 mg, bid. Condon XL 300 mg 3 times daily. ProAir HFA Inhalation, 2x a day. Simvastatin Oral (Tablet 10 mg), daily. Spiriva HandiHaler Inhalation. TraMADol HCl Oral 50 mg, 4x a day. Tylenol PM Extra Strength Oral (Tablet 500-25 mg) 2 tablets, hs. --15:31 Sierra Bettencourt R.N. Medication/allergy information source: other. --15:34 Sierra Bettencourt R.N. Allergies IV Contrast. --15:31 Sierra Bettencourt R.N. History Arrived by private vehicle. Historian: patient. Unaccompanied. Primary physician (Jose A). No injury occurred. This occurred yesterday. ( states she started walking again recently and the pain started in her right thigh yest, can only walk one block now). Treatment CHEMICAL EQUIPMENT REPAIRER: Applied ice and heat. SOCIAL HX: Former smoker. No alcohol use or drug use. FALL RISK ASSESSMENT: Fall risk assessment completed. No fall risk identified. FUNCTIONAL ASSESSMENT: Functional assessment: no impairments noted. LEARNING NEEDS ASSESSMENT: The learning needs assessment revealed no barriers. --15:34 Sierra Bettencourt R.N. PROBLEMS: Upper Extremity Pain. Hepatitis. UTI - Urinary Tract Infection. Hypertension. Drug Poisoning. Constipation. Allergic Reaction. Gastroenteritis. Muscle Strain, Lower Extremity. Cervical Strain. Colitis. Dental Caries. Dental Abscess. Dental Pain. Atypical Chest Pain. Pleurisy. Bronchitis. Pyelonephritis. COPD - Chronic Obstructive Pulmonary Disease. Urinary Calculi. Nephropathy. Peptic Ulcer Disease. Heart Disease. Lung Disease. LNMP - Last Normal Menstrual Period. Gastroesophageal Reflux Disease. Diverticulitis. Valvular Heart Disease. Chest Wall Pain. Chest Pain. Abdominal Pain. Vomiting. Diarrhea. Immunizations. --15:32 Sierra Bettencourt R.N. Chest Pain of GI Origin [RuleOut]. Diverticulitis [RuleOut]. --15:32 Sierra Bettencourt R.N. ADDITIONAL SURGERIES: Ablation. Back pain stimulator implanted 07-24. Cholecystectomy. Colectomy. Hernia Repair. Valve Replacement. --15:32 Sierra Bettencourt R.N. Assessment GENERAL / NEURO / PSYCH: Alert. Oriented X 4. Appears in no acute distress. Patient appears calm and cooperative. RESPIRATORY: Respirations not labored. SKIN: Skin is warm and dry. --15:34 Sierra Bettencourt R.N. Interventions ID and allergy band on patient. To waiting room. --15:34 Sierra Bettencourt R.N. PHYSICAL ASSESSMENT Ambulatory to room. GENERAL / NEURO / PSYCH: Oriented X 4. Alert. Appears in no acute distress. EXTREMITIES: Right leg: tenderness. SKIN: Skin intact. Skin is warm and dry. --17:40 Sheriff Wong R.N. NURSING PROGRESS NOTES Two patient identifiers checked. Call light placed in reach. Side rails up x 2. Bed placed in lowest position. Brakes of bed on. --17:40 Sheriff Wong R.N. DISPOSITION / DISCHARGE Condition at departure: stable. No learning barriers present. Discharge instructions provided and reviewed with the patient. Patient verbalized understanding. Written instructions provided in [place]. The patient was discharged home and accompanied by spouse. She left the Emergency Department ambulatory and via private vehicle. Spouse driving. --19:52 Addie Gutierrez R.N. 19:51 04/27/17. BP: 145/88. HR: 85. RR: 16. O2 saturation: 98% on room air. Temp: deferred. Heart-Boggs pain scale: 4/10. --19:52 Addie Gutierrez R.N. Locked/Released at 04/27/2017 19:52 by Addie Gutierrez R.N.
--- NOTE | 2017-04-27 21:14 | ED DISCHARGE INSTRUCTIONS ---
Patient: VESNA KRUSE General Instructions [facility] VisitID: [id number] [place] [address] 61y, F Registration Date/Time: 04/27/2017 Acute right thigh pain. INSTRUCTIONS Warnings: GENERAL WARNINGS: Return or contact your physician immediately if your condition worsens or changes unexpectedly, if not improving as expected, or if other problems arise. Specifically return if problem worsens. Follow-up: Follow up with your doctor in about three days even if well. Call for an appointment. Summary of care provided to patient. Understanding of the discharge instructions verbalized by patient. ADDITIONAL INFORMATION Myofascial Pain Syndrome: Fibrositis Your pain is caused by a state of chronic muscle tension. This condition is called by various names: myofascial pain, fibrositis and trigger point pain. This can also be due to mechanical stress (such as working at a computer terminal for long periods; or work that requires repetitive motions of the arms or hands) or emotional stress (such as problems on the job or in your personal life). Sometimes there is no obvious cause. The pain can occur in the area of the muscle spasm or at a site distant to it. For example, spasm of a neck muscle can cause headache. Spasm of the muscle near the shoulder blade can cause pain shooting down the arm. Home Care: Try to identify the factors that may be causing your problem and change them: If you feel thatemotional stressis a cause of your pain, learn methods to deal more effectively with the stress in your life. These may include regular exercise, muscle relaxation techniques, meditation or simply taking time out for yourself. Consult your doctor or go to a local bookstore and review the many books and tapes available on the subject of stress reduction. If you feel that physical stress is a cause for your pain, try to modify any poor work habits. You may use acetaminophen (Tylenol) or ibuprofen (Motrin, Advil) to control pain, unless another medicine was prescribed. [NOTE: If you have chronic liver or kidney disease or ever had a stomach ulcer or GI bleeding, talk with your doctor before using these medicines.] The use of heat to the muscle (hot compress or heating pad) will be helpful to reduce muscle spasm. Some persons get relief with ice packs. Apply an ice pack (crushed or cubed ice in a plastic bag, wrapped in a towel) for 20 minutes at a time as needed. Use the method that feels best to you. Massaging the trigger point and stretching out the muscleare an important parts of prevention and treatment. Trigger point massage can be done by first applying heat to the area to warm and prepare the muscle. Have someone apply steady thumb pressure directly on the knot in the muscle (the most tender point) for 30 seconds. Release the pressure, then massage the surrounding muscle. Repeat the process, applying more pressure to the trigger point each time. Do this up to the limit of pain. With each treatment, the trigger point should become less tender and the pain should decrease. You can apply local pressure to trigger points in the back by lying on the floor with a tennis ball under the trigger point. Follow Up with your doctor as advised or if not improving within the next week. It may be necessary for you to receive physical therapy if you do not respond to home treatment alone. Get Prompt Medical Attention if any of the following occur: If your trigger point is in the chest muscles, observe for pain that becomes more severe, lasts longer, or spreads into your shoulder/arm, neck or back; you develop trouble breathing, sweating, nausea or vomiting in association with chest pain If you develop weakness or numbness in an extremity If your pain worsens, regardless of its location Osteoarthritis Osteoarthritis (also called Degenerative Joint Disease) is the most common form of arthritis in adults over 50. It is not the same as Rheumatoid Arthritis. The exact cause is not known but may be related to excess wear and tear on the joint over a long period of time. Prior injury to that joint, or repeated stress on a joint can also cause this type of arthritis. Osteoarthritis most often affects the hands, knees, spine and hips (in that order). The most common symptoms are joint stiffness, pain and swelling. Home Care: When a joint is more sore than usual, rest that joint for a day or two. Heat is very helpful. This can be provided by taking hot baths, applying a heating pad for up to 30 minutes at a time. Because symptoms are usually worse in the morning, many patients like to take a hot bath just after awakening to relax the muscle and soothe the joints. Exercise is the most important part of home treatment for osteoarthritis. This prevents the muscles and ligaments around the joint from becoming weak and helps maintain the full range of joint motion. This limits further damage to the joint. If you are overweight, this puts a lot of extra strain on weight-bearing joints of the lower back, hips, knees, feet and ankles. Losing weight will improve your arthritis symptoms in these joints. Talk to your doctor about a safe and effective weight loss program for yourself. Anti-inflammatory medicine such as ibuprofen (Advil, Motrin) or naproxen (Aleve) is often used to treat this condition. If this alone is not helping, your doctor may prescribe a stronger medicine. If narcotic pain medicines have been prescribed, they should be used in addition to anti-inflammatory drugs and only for severe pain. Follow Up with your doctor as advised by our staff. Get Prompt Medical Attention if any of the following occur: Redness or swelling of a painful joint Fever of 100.4F (38C) or higher, or as directed by your healthcare provider Worsening joint pain You have been given the following additional information: Myofascial Pain Syndrome Osteoarthritis (Electronically signed by Loree Álvarez A.R.N.P. 04/27/2017 21:14)
--- NOTE | 2017-04-27 21:14 | ED MED RECONCILIATION SUMMARY ---
Patient: VESNA KRUSE Medication Reconciliation Report [facility] VisitID: [id number] [address] [place] [address] 61y, F Registration Date/Time: 04/27/2017 Weight: 76.6 kg Height/Length: 62 in. BMI: 30.9 ALLERGIES: IV Contrast The patient's Home Medications are listed below: THE FOLLOWING MEDICATIONS NEED TO BE RECONCILED: Cyclobenzaprine HCl Oral 10 mg, 2x a day Daily Vitamin Oral HydrOXYzine HCl Oral (50 mg), daily Metoprolol Tartrate Oral 100 mg, bid Mcdonough XL 300 mg 3 times daily ProAir HFA Inhalation, 2x a day Simvastatin Oral (10 mg), daily Spiriva HandiHaler Inhalation TraMADol HCl Oral 50 mg, 4x a day Tylenol PM Extra Strength Oral (500-25 mg) 2 tablets, hs The source(s) of the original Home Medication information: other The following Medications were given to the patient in the Emergency Department: None. The following Medications were prescribed to the patient: None.
--- NOTE | 2017-04-27 21:14 | ED MAR SUMMARY ---
..... Medication Administration Record [facility] [address], [place] [id number] Patient: VESNA KRUSE Visit ID: [id number] 61y, F Weight: 76.6 kg Height/Length: 62 in BMI: 30.9 ALLERGIES: IV Contrast
--- NOTE | 2017-04-27 21:14 | ED MED RECONCILIATION SUMMARY ---
Patient: VESAN KRUSE Medication Reconciliation Report [facility] VisitID: [id number] [address] [place] [address] 61y, F Registration Date/Time: 04/27/2017 Weight: 76.6 kg Height/Length: 62 in. BMI: 30.9 ALLERGIES: IV Contrast The patient's Home Medications are listed below: THE FOLLOWING MEDICATIONS NEED TO BE RECONCILED: Cyclobenzaprine HCl Oral 10 mg, 2x a day Daily Vitamin Oral HydrOXYzine HCl Oral (50 mg), daily Metoprolol Tartrate Oral 100 mg, bid Zearing XL 300 mg 3 times daily ProAir HFA Inhalation, 2x a day Simvastatin Oral (10 mg), daily Spiriva HandiHaler Inhalation TraMADol HCl Oral 50 mg, 4x a day Tylenol PM Extra Strength Oral (500-25 mg) 2 tablets, hs The source(s) of the original Home Medication information: other The following Medications were given to the patient in the Emergency Department: None. The following Medications were prescribed to the patient: None.
--- NOTE | 2017-04-27 21:14 | ED MAR SUMMARY ---
..... Medication Administration Record [facility] [address], [place] [id number] Patient: VESNA KRUSE Visit ID: [id number] 61y, F Weight: 76.6 kg Height/Length: 62 in BMI: 30.9 ALLERGIES: IV Contrast
== END 2017-04-27 19:47 | disposition home or self-care (01) ==
LOC: ED SRH 15:06
DX: M79.651 Pain in right thigh (principal); W19.XXXA Unspecified fall, initial encounter; Y93.01 Activity, walking, marching and hiking; Y92.89 Other specified places as the place of occurrence of the external cause; Y99.8 Other external cause status; I10 Essential (primary) hypertension; J44.9 Chronic obstructive pulmonary disease, unspecified; K21.9 Gastro-esophageal reflux disease without esophagitis; Z79.899 Other long term (current) drug therapy; Z87.891 Personal history of nicotine dependence